=== PATIENT | female | born 1985 | race Caucasian/White ===

== ENCOUNTER 2022-02-24 14:44 | Emergency (ER) | payer OTHER, SELFPAY ==
[2022-02-24 15:23] VITALS: BP 153/94; PULSE 94; RESP 19; TEMP 38; O2SAT 97; BMI 46.3
[2022-02-24 15:24] LABS: Strep Scrn Group A (Rapid) Negative (Negative)
--- NOTE | 2022-02-24 15:36 | HMH.EDUTC ---
[facility] [place] Clinical Impression: Viral syndrome UTI (urinary tract infection) Qualifiers: Urinary tract infection type: acute cystitis Hematuria presence: without hematuria Qualified Code(s): N30.00 - Acute cystitis without hematuria Disposition: Home, Self-Care Condition on Discharge: Good Instructions: Urinary Tract Infection, DI for Vaginal Yeast Infection, DI for Urinary Tract Infection (UTI) Additional Instructions: Drink plenty of fluids. Take tylenol or ibuprofen for pain or fever. Take the medications as directed. Follow up with your regular doctor. GO TO THE ER FOR ANY WORSENING SYMPTOMS We will culture the urine. That will tell what bacteria is causing your infection and which antibiotics will treat it best. Sometimes the first antibiotic we prescribe turns out to not work against different bacteria. So, make sure you follow up within 3 days if you are not getting better. Prescriptions: Ondansetron [Zofran 4mg ODT] 4 mg PO Q8HP PRN #20 tab PRN Reason: Nausea Transmission Status: Received by [id number] Ciprofloxacin HCl [Cipro 500mg Tab] 500 mg PO BID 7 Days #14 tab Transmission Status: Received by [id number] Fluconazole [Diflucan 150mg tab] 150 mg PO ONCE #1 tab Transmission Status: Received by [id number] Referrals: Provider,Referral, MD [Primary Care Provider] - Time of Disposition: 16:06 Medical Decision Making - Medical Records Medical records reviewed: No: I reviewed the patient's medical records. - Sudhakar Inquiry Pt receiving controlled substance: No Vital Signs: 02/24/22 15:23 02/24/22 16:13 Temperature 100.4 F H 99.9 F H Temperature Source Oral Oral Pulse Rate 85 Pulse Rate [Left Radial] 94 H Respiratory Rate 19 19 Blood Pressure 135/85 Blood Pressure [Right Arm] 153/94 H Blood Pressure Mean [Right Arm] 113 02 Sat by Pulse Oximetry 97 - Lab Data Lab results reviewed: Yes: I reviewed the patient's lab results. Lab Results 02/24/22 15:06: Influenza Type A Ag Negative, Influenza Type B Ag Negative 02/24/22 15:07: Group A Strep Rapid Negative 02/24/22 15:45: Urine Color Dark yellow, Urine Appearance Slightly cloudy, Urine pH 5.5, Ur Specific Blanco >= 1.030, Urine Protein Trace, Urine Glucose (UA) Negative, Urine Ketones Negative, Urine Blood Negative, Urine Nitrate Negative, Urine Bilirubin 1+ A, Urine Urobilinogen 0.2, Ur Leukocyte Esterase Negative Orders (Tests/Meds): ORDERS Category Date Time Status Strep Screen Confirmation Stat Micro 02/24/22 15:07 Received Urine Culture Stat Micro 02/24/22 15:25 Received [facility] [place] HPI - General Stated complaint: fever, nausea, bodyaches Time Seen by Provider: 02/24/22 15:36 Mode of Arrival: Ambulatory Source of Information: Patient Limitations: No Limitations Description of Symptoms (Recalled from Triage Doc. by RN): pt here for headache for 5 days. a fever, body aches, pt had chillls two nights ago. woke up with joint pain, nausea and possibly UTI. HEENT Symptoms (Recalled from RN notes): No Resp Symptoms (Recalled from RN notes): Yes Skin Symptoms (Recalled from RN notes): No MS Symptoms (Recalled from RN notes): No Functional Status (Recalled from RN notes): wnl - History of Present Illness Provider Complaint: She states that she has felt bad for the past 4 to 5 days. She has had body aches and malaise. Yesterday her body aches worsened and she began having low back pain and dysuria. - Related Data Previous Rx's Medication Instructions Recorded Ciprofloxacin HCl [Cipro 500mg 500 mg PO BID 7 Days #14 tab 02/24/22 Tab] Fluconazole [Diflucan 150mg tab] 150 mg PO ONCE #1 tab 02/24/22 Ondansetron [Zofran 4mg ODT] 4 mg PO Q8HP PRN #20 tab 02/24/22 Allergies Allergy/AdvReac Type Severity Reaction Status Date / Time No Known Allergies Allergy Verified 02/24/22 16:07 - Worker's Comp Is this a Worker's Comp case?: No
[2022-02-24 16:13] VITALS: BP 135/85; PULSE 85; RESP 19; TEMP 37.7
[2022-02-24 16:22] LABS: Apearance,Urine Slightly Cloudy (Clear); Bilirubin,Urine 1+ (Negative); Blood, Urine Negative (Negative); Color,Urine Dark Yellow (Yellow); Glucose,Urine (UA) Negative (Negative); Ketones,Urine Negative (Negative); PH,Urine 5.5 (5.0-8.5); Protein,Urine Trace (Negative); Specific Gravity, Urine >= 1.030 (1.005-1.030); UTC Leukocyte Esterase,Urine Negative (Negative); UTC Nitrate,Urine Negative (Negative); Urobilinogen,Urine 0.2 EU/dl (0.2)
[2022-02-24 19:09] LABS: UTC Influenza A Antigen Negative (Negative); UTC Influenza B Antigen Negative (Negative)
== END 2022-02-24 16:14 | disposition home or self-care (01) ==
PROVIDERS: Emergency Provider Nurse Practitioner Family
DX: N30.00 Acute cystitis without hematuria (principal); B34.9 Viral infection, unspecified
CPT/HCPCS: 81003; 87086; 87430; 87804; 99212; G0463

== ENCOUNTER 2023-06-08 08:00 | Emergency (ER) | payer BC, SELFPAY ==
[2023-06-08 08:10] VITALS: BP 106/70; PULSE 85; RESP 20; TEMP 36.6; O2SAT 97; BMI 47.4
--- NOTE | 2023-06-08 08:16 | EXP.UTC ---
Discharge Plan Disposition Patient Disposition: Home, Self-Care Condition: Good Prescriptions Prescriptions: New ondansetron HCl 8 mg tablet 8 mg PO DAILY PRN (Reason: nausea and vomiting) Qty: 30 0RF No Action irbesartan-hydrochlorothiazide 300-12.5 mg tablet 1 tab PO DAILY Patient Comments: TAKE 1 TABLET BY MOUTH EVERY DAY FOR 90 DAYS furosemide 20 mg tablet 20 mg PO DAILY Patient Comments: TAKE 1 TABLET BY MOUTH EVERY DAY Referrals Follow up/Referrals: Jose Rodriguez MD [Primary Care Provider] - See instructions Activity Restrictions/Add. Instructions Additional Instructions/Restrictions: COVID19 pending - we will call with those results Zofran as needed for upset stomach Rest, fluids, Tylenol/Motrin as needed Return to [facility] or ER is symptoms worsen or fail to improve Clinical Impressions Clinical Impression: Viral syndrome Stand Alone Forms Stand Alone Forms: Work/School Release Instructions Patient Instructions: DI for COVID-19 (Suspected or Confirmed ) Discharge ED Provider: Sol Gee [facility] [place] HPI General Stated complaint: fever/chills, body aches, h/a Time Seen by Provider: 06/08/23 08:16 History of Present Illness Provider Complaint: Nausea, vomiting, diarrhea started yesterday. Slept all day yesterday. Woke up early this am with fever, body aches, chills. Denies ear pain, denies congestion, denies sore throat, denies rash. Onset (ago): day(s) Relieving factors: none Exacerbating factors: none Associated symptoms: fever/chills, headaches and nausea/vomiting Treatments prior to arrival: NSAID Related Data Home Medications Medication Instructions Recorded Confirmed furosemide 20 mg tablet 20 mg PO DAILY Fluid 06/08/23 06/08/23 irbesartan 300 1 tab PO DAILY Hypertension 06/08/23 06/08/23 mg-hydrochlorothiazide 12.5 mg tablet Previous Rx's Medication Instructions Recorded ondansetron HCl 8 mg tablet 8 mg PO DAILY PRN nausea and 06/08/23 vomiting #30 tabs Allergies Allergy/AdvReac Type Severity Reaction Status Date / Time No Known Allergies Allergy Verified 02/24/22 16:07 [facility] Disclaimer: The information contained in this section may have been updated after the patient was seen, as this information can be updated by other users. Social History Smoking Status: Never smoker alcohol intake: never current occupational status: employed Travel in the last 8 weeks: None ROS Obtained: Yes All systems reviewed & no additional complaints except as documented Constitutional Constitutional: Reports body ache, Reports chills, Reports fever(s) and Reports headache(s) ENT Ears, Nose, Mouth, and Throat: Reports headache(s) Gastrointestinal Gastrointestingal: Reports loose stools and nausea Neurologic Neurologic: Reports headache(s) Physical Exam General General appearance: alert and in no apparent distress Head Head exam: atraumatic, normocephalic and normal inspection Eye Eye exam: Present normal appearance, PERRL and EOMI ENT ENT exam: Present normal exam, normal oropharynx, mucous membranes moist, TM's normal bilaterally and normal external ear exam Neck Neck exam: Present normal inspection, full ROM and trachea midline; Absent meningismus or lymphadenopathy Chest Chest inspection: Present normal inspection and symmetric chest wall rise; Absent tenderness Respiratory Respiratory exam: Present normal lung sounds bilaterally; Absent respiratory distress Cardiovascular Cardiovascular exam: Present regular rate and normal rhythm; Absent JVD Abdominal Exam Abdominal exam: Present soft and normal bowel sounds; Absent distention, tenderness or guarding Extremities Exam Extremities exam: Present normal inspection, full ROM and normal capillary refill; Absent calf tenderness Back Exam Back exam: Present normal inspection; Absent tenderness Neurological Exam Neurological exam: Present alert and oriented X3 Psychiat
[2023-06-08 08:23] VITALS: BP 106/70; PULSE 85; RESP 20; TEMP 36.6; O2SAT 97
== END 2023-06-08 08:29 | disposition home or self-care (01) ==
PROVIDERS: Emergency Provider Physician Assistant; PCP Family Medicine
DX: R11.2 Nausea with vomiting, unspecified (principal); R19.7 Diarrhea, unspecified; R50.9 Fever, unspecified; R51.9 Headache, unspecified; B34.9 Viral infection, unspecified
CPT/HCPCS: 99212; 99214; G0463

== ENCOUNTER 2023-12-19 12:35 | Emergency (ER) | payer BC, SELFPAY ==
[2023-12-19 12:36] VITALS: BP 162/87; PULSE 75; RESP 16; TEMP 36.7; O2SAT 94; BMI 48.3
--- NOTE | 2023-12-19 13:08 | HMH.EDGENADL ---
Discharge Plan Disposition Patient Disposition: Home, Self-Care Condition: Good Prescriptions Prescriptions: No Action irbesartan-hydrochlorothiazide 300-12.5 mg tablet 1 tab PO DAILY Patient Comments: TAKE 1 TABLET BY MOUTH EVERY DAY FOR 90 DAYS furosemide 20 mg tablet 20 mg PO DAILY Patient Comments: TAKE 1 TABLET BY MOUTH EVERY DAY ondansetron HCl 8 mg tablet 8 mg PO DAILY PRN (Reason: nausea and vomiting) Qty: 30 0RF Referrals Follow up/Referrals: Jose Rodriguez MD [Primary Care Provider] - See instructions Chester Gomez MD [Staff Physician] - See instructions Activity Restrictions/Add. Instructions Additional Instructions/Restrictions: Please return to the emergency department if you experience any new or worsening symptoms. Clinical Impressions Clinical Impression: Biliary sludge determined by ultrasound, Abdominal pain, epigastric Instructions Patient Instructions: DI for Acute Abdominal Pain Discharge ED Provider: Pablo Puckett Adult HPI General Chief complaint: Abdominal Pain Stated complaint: pain in lower L abd and back Time Seen by Provider: 12/19/23 13:08 Mode of Arrival: Ambulatory Source of Information: Patient Limitations: No Limitations Description of Symptoms (Recalled from ER Triage Doc. by RN): patient presents to ER with complaints of pain in left upper quadrant that radiates into back. States pain started on Friday was seen by PCP where they chrystal labs but has not heard anything and does not feel like he is getting any better. Denies vomiting and diarrhea. History of Present Illness HPI narrative: Patient presents for evaluation of left upper quadrant and epigastric abdominal pain that is worsened with fatty meals, has had similar symptoms in the past, pain is described as dull and nonradiating. It is moderate in severity. It is resolving at this time. Associated symptoms include nausea and vomiting. No fevers or chills or dysuria or frequency. No sick contacts. No recent travel. Denies abdominal surgical history. Patient has been able to move bowels without difficulty. Symptoms were gradual in onset starting in the past 72 hours. Please note that above description of symptoms, in this electronic medical record under categorization of recalled from ER triage doctor by RN are reflective of an initial nursing assessment, however, is not reflective of my full history and physical exam that was personally taken and clarified. Consequentially, this preceding description of symptoms, which may include the patient's categorized chief complaint in the EMR, do not reflect my personal clinical impression, and the ultimate description of history of present illness and patient stated complaints should be deferred to this section of the note. Unless stated otherwise or congruent with this section of the note, additional signs, symptoms, or incongruence should be interpreted as inaccurate with my clinical impression. Related Data Home Medications Medication Instructions Recorded Confirmed furosemide 20 mg tablet 20 mg PO DAILY Fluid 06/08/23 06/08/23 irbesartan 300 1 tab PO DAILY Hypertension 06/08/23 06/08/23 mg-hydrochlorothiazide 12.5 mg tablet Previous Rx's Medication Instructions Recorded ondansetron HCl 8 mg tablet 8 mg PO DAILY PRN nausea and 06/08/23 vomiting #30 tabs Allergies Allergy/AdvReac Type Severity Reaction Status Date / Time No Known Allergies Allergy Verified 02/24/22 16:07 [facility] Disclaimer: The information contained in this section may have been updated after the patient was seen, as this information can be updated by other users. Social History (Updated 06/08/23 @ 08:24 by CARLITOS Victor) Smoking Status: Never smoker alcohol intake: never current occupational status: employed Travel in the last 8 weeks: None ROS Obtained: Yes Systems reviewed as appropriate & no additional complaints except as documented As per HPI Physical Exam General General appearance: alert and in no apparent distress Head Head exam: atraumatic and normocephalic Eye Eye exam: Present normal appearance Neck Neck exam: Present normal inspection Chest Chest inspection: Present normal inspection and symmetric chest wall rise Respiratory Respiratory exam: Present normal lung sounds bilaterally; Absent respiratory distress Cardiovascular Cardiovascular exam: Present regular rate and normal rhythm Abdominal Exam Abdominal exam: Present soft and tenderness Abdominal tenderness: Present LUQ and epigastrium Neurological Exam Neurological exam: Present alert and oriented X3 Psychiatric Psychiatric exam: Present normal affect and normal mood Skin Skin exam: Present warm and dry Medical Decision Making Medical Records Medical records reviewed: Yes I reviewed the patient's medical records. Sudhakar Inquiry Pt receiving controlled substance: No Vital Signs: 12/19/23 12:36 12/19/23 14:47 Temperature 98.0 F 98.0 F Temperature Source Oral Pulse Rate 72 Pulse Rate [Right] 75 Respiratory Rate 16 15 Blood Pressure 133/79 Blood Pressure [Right Arm] 162/87 H Blood Pressure Mean [Right Arm] 112 Blood Pressure Source [Right Arm] Automatic Cuff 02 Sat by Pulse Oximetry 94 L Oxygen Delivery Method Room Air Lab Data Lab Results 12/19/23 12:59: WBC 10.6, RBC 4.95, Hgb 14.1, Hct 43.8, MCV 88.4, MCH 28.5, MCHC 32.3, RDW 13.2, Plt Count 323, MPV 7.8, Neut % (Auto) 76.9, Lymph % (Auto) 16.0, Lipscomb % (Auto) 6.1, Eos % (Auto) 0.5, Baso % (Auto) 0.5, Neut # (Auto) 8.1 H, Lymph # (Auto) 1.7, Lipscomb # (Auto) 0.7, Eos # (Auto) 0.1, Baso # (Auto) 0.1, Sodium 136, Potassium 3.9, Chloride 99, Carbon Dioxide 32 H, Anion Gap 8.9, BUN 13, Creatinine 0.70, Estimated Creat Clear 112, Estimated GFR 95, Est GFR ( Amer) 115, Glucose 92, Calcium 9.1, Total Bilirubin 1.0, AST 29, ALT 23, Alkaline Phosphatase 79, Total Protein 7.1, Albumin 4.3, Globulin 2.8, Albumin/Globulin Ratio 1.5, Lipase 27, Serum HCG, Qual Negative 12/19/23 12:59 12/19/23 12:59 Orders (Tests/Meds): ED MEDICATIONS Discontinued Medications Generic Name Dose Route Start Last Admin Trade Name Freq PRN Reason Stop Dose Admin Belladonna Alkaloids 60 ml 12/19/23 13:44 12/19/23 13:54 Belladonna Alkaloids 60 Ml Ml PO 12/19/23 13:45 60 ml ONCE ONE Administration Prochlorperazine Edisylate 10 mg 12/19/23 13:44 12/19/23 13:55 Prochlorperazine 10mg/2ml Vial IM 12/19/23 13:45 Not Given ONCE ONE Prochlorperazine Edisylate 10 mg 12/19/23 13:56 12/19/23 14:02 Prochlorperazine 10mg/2ml Vial IV 12/19/23 13:57 10 mg ONCE ONE Administration ORDERS Category Date Time Status US Right Upper Quad [US abdomen limited] Stat Exams 12/19/23 13:45 Completed CBC w/Auto Diff [Complete Blood Count Auto Diff] Stat Lab 12/19/23 12:59 Completed CMP [Comprehensive Metabolic Panel] Stat Lab 12/19/23 12:59 Completed HCG Qualitative, Serum Stat Lab 12/19/23 12:59 Completed Lipase Stat Lab 12/19/23 12:59 Completed Medical Decision Narrative: Patient with history and exam per above presenting for evaluation of epigastric and left upper quadrant abdominal pain associated with meals Diagnoses considered include Pancreatitis, gastritis, PUD, gastroparesis, early presentation of cholelithiasis or cholecystitis, no clinical evidence at this time to suggest bowel obstruction or acute abdominal surgical pathology ED workup and treatment included: ED MEDICATIONS Discontinued Medications Generic Name Dose Route Start Last Admin Trade Name Freq PRN Reason Stop Dose Admin Belladonna Alkaloids 60 ml 12/19/23 13:44 12/19/23 13:54 Belladonna Alkaloids 60 Ml Ml PO 12/19/23 13:45 60 ml ONCE ONE Administration Prochlorperazine Edisylate 10 mg 12/19/23 13:44 12/19/23 13:55 Prochlorperazine 10mg/2ml Vial IM 12/19/23 13:45 Not Given ONCE ONE Prochlorperazine Edisylate 10 mg 12/19/23 13:56 12/19/23 14:02 Prochlorperazine 10mg/2ml Vial IV 12/19/23 13:57 10 mg ONCE ONE Administration ORDERS Category Date Time Status US Right Upper Quad [US abdomen limited] Stat Exams 12/19/23 13:45 Completed CBC w/Auto Diff [Complete Blood Count Auto Diff] Stat Lab 12/19/23 12:59 Completed CMP [Comprehensive Metabolic Panel] Stat Lab 12/19/23 12:59 Completed HCG Qualitative, Serum Stat Lab 12/19/23 12:59 Completed Lipase Stat Lab 12/19/23 12:59 Completed Labs were independently interpreted by me, significant for no leukocytosis, liver enzymes within normal limits, no other acute findings Imaging was independently visualized and interpreted by me, significant for biliary sludge without other evidence on ultrasonography of acute cholecystitis. Please refer to radiology report for full details. My clinical impression at this time is most consistent with gastritis versus symptomatic cholelithiasis for which patient has general surgery referral placed. I discussed my clinical impression with patient and answered all questions. At this time, the evidence for any other entities in the differential is insufficient to warrant any further testing or ED observation. This was explained to the patient. The patient was advised that persistent or worsening symptoms require further evaluation. I confirmed the patient's understanding of this discussion. Critical Care Critical Care Time Critical Care Time: No
--- NOTE | 2023-12-19 13:13 | PC.NURSE ---
PT RESTING IN CHAIR, NO NEEDS AT THIS TIME,CALL LIGHT IN REACH
--- NOTE | 2023-12-19 13:45 | US_ITS ---
FINAL REPORT CLINICAL HISTORY: RUQ pain, evaluage gallbladder COMPARISON: None FINDINGS: Sonographic images of the right upper quadrant were obtained. The pancreas is partially obscured.The liver has an unremarkable appearance.The gallbladder appears normal without evidence of gallstones.There is no evidence of biliary ductal dilatation.The common duct measures 5 mm. Limited images of the right kidney are unremarkable. IMPRESSION: Unremarkable right upper quadrant ultrasound. Reviewed, Interpreted and Dictated by George Murray III, MD Transcribed by Verna Cuello Authenticated and [facility]
[2023-12-19] MEDS: BELLADONNA ALKALOIDS 60 ML ML PO (13:54)
[2023-12-19] MEDS: PROCHLORPERAZINE 10MG/2ML VIAL 10 MG IV (14:02)
[2023-12-19 14:14] LABS: Chloride 99 mmol/L (98-107); Sodium 136 mmol/L (136-145)
[2023-12-19 14:15] LABS: Potassium 3.9 mmoL/L (3.5-5.1)
[2023-12-19 14:16] LABS: Basophils # 0.1 K/mm3 (0-0.2); Basophils % 0.5 % (0.1-2.0); Eosinophils # 0.1 K/mm3 (0.0-0.4); Eosinophils % 0.5 % (0.1-12.0); Hematocrit 43.8 % (37.0-47.0); Hemoglobin 14.1 g/dL (12.2-16.2); Lymphocytes # 1.7 K/mm3 (0.7-4.5); Mean Corpuscular HGB Conc 32.3 g/dL (31.8-35.4); Mean Corpuscular Hemoglobin 28.5 pg (27.0-31.2); Mean Corpuscular Volume 88.4 fl (81-99); Mean Platelet Volume 7.8 fl (7.4-10.4); Monocytes # 0.7 K/mm3 (0.1-1.0); Monocytes % 6.1 % (1.7-9.3); Neutrophils # 8.1 K/mm3 (1.8-7.8); Neutrophils % 76.9 % (37.0-80.0); Platelet Count 323 K/mm3 (142-424); Red Blood Count 4.95 M/mm3 (4.20-5.40); Red Cell Distribution Width 13.2 % (11.5-17.5); White Blood Count 10.6 K/mm3 (4.8-10.8)
[2023-12-19 14:17] LABS: Alanine Aminotransferase 23 U/L (12-78); Alkaline Phosphatase 79 U/L (38-126); Anion Gap 8.9 mEq/L (5-15); Aspartate Amino Transferase 29 U/L (14-36); Blood Urea Nitrogen 13 mg/dl (7-17); Carbon Dioxide 32 mmol/L (22.0-30.0); Creatinine Clearance Estimated 112 mL/min (50-200); Estimated Glomerular Filt Rate 95 ml/min (>60); GFR (African American) 115 ML/MIN (>60); Lipase 27 U/L (23-300)
[2023-12-19 14:18] LABS: Albumin Level 4.3 g/dl (3.5-5.0); Albumin/Globulin Ratio 1.5 (1.1-1.8); Calcium 9.1 mg/dl (8.4-10.2); Globulin 2.8 g/dL (1.3-3.2); Glucose 92 mg/dl (74-100); Total Protein,Serum 7.1 g/dl (6.3-8.2)
[2023-12-19 14:19] LABS: HCG Qualitative, Serum Negative (Negative)
--- NOTE | 2023-12-19 14:20 | PC.NURSE ---
PT BACK FROM ULTRASOUND
[2023-12-19 14:47] VITALS: BP 133/79; PULSE 72; RESP 15; TEMP 36.7
== END 2023-12-19 14:48 | disposition home or self-care (01) ==
PROVIDERS: Emergency Provider Emergency Medicine; PCP Family Medicine
DX: R10.13 Epigastric pain (principal); K83.9 Disease of biliary tract, unspecified; R10.12 Left upper quadrant pain
CPT/HCPCS: 76705; 80053; 83690; 84703; 85025; 96374; 99285

== ENCOUNTER 2024-01-09 10:17 | Outpatient (CLI) | payer BC, SELFPAY ==
--- NOTE | 2024-01-09 10:21 | NM_ITS ---
FINAL REPORT CLINICAL HISTORY: EPIGASTRIC PAIN,NAUSEA,SLUDGE 10:30 am 8.43 mci tc choletec 12:00 pm 2.8 mcg of cck pain during cck FINDINGS: Sequential anterior projection images of the abdomen were obtained after the intravenous injection of 8.43 mCi technetium 99m Choletec. There is normal uptake of radiotracer by the liver. The bile ducts are visualized by 10 minutes. Gallbladder activity is seen by 10 minutes. Bowel activity is noted by 20 minutes. After 1 hour, 2.8 ?g of CCK was injected intravenously for calculation of gallbladder ejection fraction. The gallbladder ejection fraction is 90%, which is within normal limits. IMPRESSION: No evidence of cystic duct or bile duct obstruction. Normal gallbladder ejection fraction of 90%. Reviewed, Interpreted and Dictated by George Murray III, MD Transcribed by Stephanie Tan Authenticated and [facility]
[2024-01-09] MEDS: SINCALIDE 2.8 MCG in 0.9 % SODIUM CHLORIDE 50 ML 100 MCG IV (12:59)
[2024-01-09] MEDS: ISOTOPE CHOLETECH;1 DOSE (UP TO 15 MCI) IV (12:59)
[2024-01-09] MEDS: SODIUM CHLORIDE 0.9% 10ML SYR (RAD ONLY) 10 ML IV (12:59)
== END 2024-01-09 23:59 ==
LOC: RAD 10:18
PROVIDERS: PCP Family Medicine; Visit Provider Family Medicine
DX: R10.13 Epigastric pain (principal); R11.0 Nausea; K82.8 Other specified diseases of gallbladder
CPT/HCPCS: 78227; A9537; J2805

== ENCOUNTER 2024-01-16 15:42 | Outpatient (CLI) | payer BC, SELFPAY ==
[2024-01-19 11:10] LABS: H. pylori Breath Test Negative (Negative)
== END 2024-01-16 23:59 ==
LOC: LAB 15:43
PROVIDERS: PCP Family Medicine; Visit Provider Family Medicine
DX: R10.13 Epigastric pain (principal); R11.0 Nausea; R14.0 Abdominal distension (gaseous)
CPT/HCPCS: 36415; 83013

== ENCOUNTER 2024-02-12 09:02 | Outpatient (CLI) | payer BC, SELFPAY ==
--- NOTE | 2024-02-12 09:13 | CT_ITS ---
FINAL REPORT CLINICAL HISTORY: ABDOMINAL PAIN COMPARISON: None FINDINGS: CT OF THE ABDOMEN AND PELVIS WITH CONTRAST Axial CT images of the abdomen and pelvis were obtained after the administration of oral and iv contrast. Coronal reformatted images were also obtained and reviewed.This study was performed with techniques to keep radiation doses as low as reasonably achievable (ALARA). Individualized dose reduction techniques using automated exposure control or adjustment of mA and/or kV according to the patient's size were employed. Abdomen: There is mild atelectasis or scarring in the lung bases. The heart is normal in size. The liver has an unremarkable appearance, without evidence of mass or biliary ductal dilatation. The spleen is unremarkable. No adrenal mass is present. The pancreas has an unremarkable appearance. The kidneys are normal, without evidence of mass or hydronephrosis. The aorta is normal in caliber. There is no free fluid or adenopathy. No mass or abnormal fluid collection is seen. Pelvis: The appendix normal. The urinary bladder is unremarkable. An IUD is noted in the uterus. No inflammatory process is seen. There is no evidence of mass or adenopathy. There is no evidence of bowel obstruction. IMPRESSION: No evidence of acute intra-abdominal process. Reviewed, Interpreted and Dictated by George Murray III, MD Transcribed by Verna Cuello Authenticated and [facility]
[2024-02-12 09:41] LABS: Blood Urea Nitrogen 16 mg/dl (7-17); Estimated Glomerular Filt Rate 113 ml/min (>60); GFR (African American) 137 ML/MIN (>60)
[2024-02-12] MEDS: BARIUM SULFATE(READI-CAT2);450ML BOTTLE 450 ML PO (10:10)
[2024-02-12] MEDS: IOPAMIDOL-370 (76%);100ML BOTTLE 75 ML IV (10:10)
[2024-02-12] MEDS: SODIUM CHLORIDE 0.9% 10ML SYR (RAD ONLY) 10 ML IV (10:10)
== END 2024-02-12 23:59 | disposition home or self-care (01) ==
LOC: RAD 09:02
PROVIDERS: PCP Family Medicine; Visit Provider Family Medicine
DX: R10.12 Left upper quadrant pain (principal); R10.32 Left lower quadrant pain
CPT/HCPCS: 36415; 74177; 82565; 84520; Q9967

== ENCOUNTER 2024-08-03 09:38 | Emergency (ER) | payer BC, SELFPAY ==
--- NOTE | 2024-08-03 10:04 | XR_ITS ---
PROCEDURE INFORMATION: Exam: XR Right Hand Exam date and time: 08/03/2024 10:09 AM Age: 39 years old Clinical indication: Right; Patient HX: Marianne, woke up with hand pain TECHNIQUE: Imaging protocol: Radiologic exam of the right hand. Views: 3 or more views. COMPARISON: No relevant prior studies available. FINDINGS: Bones/joints: Bones are intact and the joint spaces are preserved. No fracture or acute bony abnormality. No significant arthritic changes. Soft tissues: Unremarkable. No soft tissue gas or radiopaque foreign body. IMPRESSION: No acute findings.
[2024-08-03 10:35] VITALS: BP 123/80; PULSE 80; RESP 20; TEMP 36.9; O2SAT 97; BMI 52.1
--- NOTE | 2024-08-03 10:42 | ED_ITS ---
Discharge Plan Disposition Patient Disposition: Home, Self-Care Condition: Good Prescriptions Prescriptions: New methylprednisolone 4 mg Tablets,Dose Pack 4 mg PO DIRECTED 6 Days Qty: 21 0RF Rx Instructions: Take 1 pack as directed for 6 days No Action irbesartan-hydrochlorothiazide 300-12.5 mg tablet 1 tab PO DAILY Patient Comments: TAKE 1 TABLET BY MOUTH EVERY DAY FOR 90 DAYS furosemide 20 mg tablet 20 mg PO DAILY Patient Comments: TAKE 1 TABLET BY MOUTH EVERY DAY Referrals Follow up/Referrals: Jose Rodriguez MD [Primary Care Provider] - See instructions John Paul Anderson DO [Staff Physician] - See instructions Activity Restrictions/Add. Instructions Additional Instructions/Restrictions: Rest the extremity, Elevate the extremity as tolerated while you are resting. Rest your hand for the next few days. Take the medication as directed. Follow up with Dr. Anderson (orthopedics). I put in a referral but you need to call his office and schedule an appointment. Follow up with your regular doctor. GO TO THE ER FOR ANY WORSENING SYMPTOMS Clinical Impressions Clinical Impression: Right hand tendonitis Instructions Patient Instructions: DI for Tendinitis, Methylprednisolone Print Language Print Language: Cymro Discharge ED Provider: Vu Gannon [facility] General Stated complaint: middle finger swollen and cant bend Time Seen by Provider: 08/03/24 10:42 History of Present Illness Provider Complaint: She states that for the past 2 days she has had right middle finger pain and stiffness. She denies any injury. Related Data Home Medications ?Medication ?Instructions ?Recorded ?Confirmed furosemide 20 mg tablet 20 mg PO DAILY Fluid 06/08/23 08/03/24 irbesartan 300 1 tab PO DAILY Hypertension 06/08/23 08/03/24 mg-hydrochlorothiazide 12.5 mg tablet Previous Rx's ?Medication ?Instructions ?Recorded methylprednisolone 4 mg tablets in 4 mg PO DIRECTED 6 days #21 tabs 08/03/24 a dose pack Allergies Allergy/AdvReac Type Severity Reaction Status Date / Time No Known Allergies Allergy Verified 02/24/22 16:07 [facility] Disclaimer: The information contained in this section may have been updated after the patient was seen, as this information can be updated by other users. Medical History (Updated 08/03/24 @ 11:26 by Vu Gannon APRN) Intracranial hypertension Hypertension Social History (Updated 06/08/23 @ 08:24 by CARLITOS Victor) Smoking Status: Never smoker alcohol intake: never current occupational status: employed Travel in the last 8 weeks: None ROS Obtained: Yes All systems reviewed & no additional complaints except as documented Constitutional Constitutional: Denies chills and Denies fever(s) Eyes Eyes: Denies eye discharge ENT Ears, Nose, Mouth, and Throat: Denies dizziness, Denies otalgia and Denies sore throat Cardiovascular Cardiovascular: Denies chest pain Respiratory Respiratory: Denies shortness of breath, Denies chest congestion, Denies cough, Denies stridor and Denies wheezing Gastrointestinal Gastrointestingal: Denies nausea or vomiting Musculoskeletal Musculoskeletal: Reports as per HPI Integumentary/Breasts Skin/Breast: Denies rash Neurologic Neurologic: Denies dizziness and Denies paresthesias Allergic/Immunologic Allergic/Immunologic: Denies wheezing Physical Exam General General appearance: alert and in no apparent distress Head Head exam: atraumatic, normocephalic and normal inspection Eye Eye exam: Present normal appearance, PERRL and EOMI ENT ENT exam: Present normal exam, normal oropharynx, mucous membranes moist, TM's normal bilaterally and normal external ear exam Neck Neck exam: Present normal inspection, full ROM and trachea midline; Absent meningismus or lymphadenopathy Chest Chest inspection: Present normal inspection and symmetric chest wall rise; Absent tenderness Respiratory Respiratory exam: Present normal lung sounds bilaterally; Absent respiratory distress Cardiovascular Cardiovascular exam: Present regular rate and normal rhythm; Absent JVD Abdominal Exam Abdominal exam: Present soft and normal bowel sounds; Absent distention, tenderness or guarding Extremities Exam Extremities exam: Present normal capillary refill; Absent calf tenderness Expanded Upper Extremity Exam Right: Elbow exam: Present normal inspection and full ROM; Absent tenderness, pain w/ pronation/supination or tenderness over radial head Forearm/Wrist exam: Present normal inspection and full ROM; Absent tenderness, tenderness over anatomical snuff box or pain with axial thumb loading Hand exam: Present tenderness; Absent swelling, abrasion, laceration, skin avulsion, ecchymosis, deformity, crepitus, dislocation, erythema, amputation, nail avulsion or subungual hematoma Neuromotor exam: Normal wrist extension, thumb opposition, thumb IP flexion, thumb adduction and fingers 2-5 abduction Neurosensory exam: Normal radial nerve, ulnar nerve and median nerve Vascular exam: Normal capillary refill, radial pulse and ulnar pulse Back Exam Back exam: Present normal inspection; Absent tenderness Neurological Exam Neurological exam: Present alert and oriented X3 Psychiatric Psychiatric exam: Present normal affect and normal mood Skin Skin exam: Present warm, dry, intact and normal color Lymphatic Lymphatic Findings: no adenopathy Medical Decision Making Medical Records Medical records reviewed: No I reviewed the patient's medical records. Screening: Per USPSTF and CDC recommendations, given the prevalence of disease in our [facility], it is our hospital?s policy to screen for HIV and viral Hepatitis for all patients aged 18 and over and those with ongoing risk factors. Sudhakar Inquiry Pt receiving controlled substance: No Orders (Tests/Meds): ORDERS Category Date Time Status Hand XR right minimum 3 views [XR hand RT min 3V] Stat Exams 08/03/24 10:04 Taken Radiology Data #1: Image(s): Hand Image Reviewed: Yes I reviewed the patient's radiology image and Yes I have reviewed radiologist's interpretation Preliminary Findings: Normal/NAD Accession No. : [id number] Patient Name / ID : BREANA Phillips / [id number] Exam Date : 08/03/2024 10:09:44 ( Final ) Study Comment : Sex / Age : F / 39Y Creator : MARYBETH HASKINS Dictator : Milker Machine : Assistant Professor Of German : MARYBETH HASKINS Approver2 : Report Date : 08/03/2024 10:50:05 My Comment : PROCEDURE INFORMATION: Exam: XR Right Hand Exam date and time: 08/03/2024 10:09 AM Age: 39 years old Clinical indication: Right; Patient HX: Nki, woke up with hand pain TECHNIQUE: Imaging protocol: Radiologic exam of the right hand. Views: 3 or more views. COMPARISON: No relevant prior studies available. FINDINGS: Bones/joints: Bones are intact and the joint spaces are preserved. No fracture or acute bony abnormality. No significant arthritic changes. Soft tissues: Unremarkable. No soft tissue gas or radiopaque foreign body. IMPRESSION: No acute findings.
[2024-08-03 11:27] VITALS: BP 123/80; PULSE 80; RESP 20; TEMP 36.9; O2SAT 97
== END 2024-08-03 11:29 | disposition home or self-care (01) ==
PROVIDERS: Emergency Provider Nurse Practitioner Family; PCP Family Medicine
DX: M65.241 Calcific tendinitis, right hand (principal)
CPT/HCPCS: 73130; 99213; G0381

== ENCOUNTER 2025-08-20 17:11 | Emergency (ER) | payer BC, SELFPAY ==
--- OUTSIDE RECORDS SUMMARY | 2025-07-12 07:00 | XMS_ITS | Encounter Summary ---
Author Organization Healthcare Address [address] [place] [address] Care Team Providers Care Laborer [employer] Name Role Phone Jose Rodriguez MD Primary Care Provider + [phone] Reason for Visit * Reason Comments office visit Pt came in for strin g check no other concerns she did said she has general pain she rates an 4-5. Encounter Details Date Type Department Care Team ([facility] Contact Info) Description 07/12/2025 8:00 AM EDT Office Visit Obstetrics & Gynecology [address] [place] [address] Anna Elkins, PRESCHOOL TEACHER AIDE, CNM [address] [facility] [address] [place] [address] IUD check up (Primary Dx); Intrauterine contraceptive device threads lost, initial encounter; control counseling Social History Tobacco Use Types Packs/Day Years Used Date Smoking Tobacco: Never Smokeless Tobacco: Never Alcohol Use Standard Drinks/Week Comments Yes 0 (1 standard drink = 0.6 oz pur e alcohol) PHQ-2 Answer Date Recorded Patient Health Questionnaire-2 Score 0 07/12/2025 Comments No Sex and Gender Information Value Date Recorded Sex Assigned at Not on file Legal Sex Female 10:49 AM EDT Gender Identity Not on file Sexual Orientation Not on file documented as of this encounter Last Filed Vital Signs Vital Sign Reading Time Taken Comments Blood Pressure 121/85 07/12/2025 8:03 AM EDT Pulse 84 07/12/2025 8:03 AM EDT Temperature 36.9 C (98.5 F) 07/12/2025 8:03 AM EDT Respiratory Rate - - Oxygen Saturation 96% 07/12/2025 8:03 AM EDT Inhaled Oxygen Concentration - - Weight 149 kg (328 lb 4.2 oz) 07/12/2025 8:03 AM EDT Height - - Body Mass Index 49.91 06/14/2025 3:13 PM EDT documented in this encounter Functional Status * Over the past 2 weeks, how often have you been bothered by any of the following problems? Question Answer Date of Assessment Author Little interest or pleasure in doing things Not at all 07/12/2025 8:05 AM EDT [place] Feeling down, depressed, or hopeless Not at all 07/12/2025 8:05 AM EDT [place] Patient Health Questionnaire-2 Score 0 07/12/2025 8:05 AM EDT Bernadette Valle * How difficult have these problems made it for you to do your work, take care of things at home, or get along with other people? Answer Date of Assessment Author Not difficult at all 07/12/2025 8:05 AM EDT SheBernadette Valero documented as of this encounter Miscellaneous Notes * Progress Notes - Anna Elkins, OLU, ERROL - 07/12/2025 8:00 AM EDT Gynecology Progress Note Subjective Navid is a 40 yo G0 who presents today for a string check. Doing well. Has had some intense cramping intermittently. Declines bleeding after the first few days. Has no desires for children in the future Review of Systems Constitutional: Negative. HENT: Negative. Eyes: Negative. Respiratory: Negative. Cardiovascular: Negative. Gastrointestinal: Negative. Endocrine: Negative. Genitourinary: Abdominal cramping Musculoskeletal: Negative. Skin: Negative. Allergic/Immunologic: Negative. Neurological: Negative. Hematological: Negative. Psychiatric/Behavioral: Negative. Objective Visit Vitals BP 121/85 Pulse 84 Temp 36.9 ??C (98.5 ??F) Physical Exam Genitourinary: Vulva, bladder and urethral meatus normal. Right Labia: No rash, tenderness, lesions or skin changes. Left Labia: No tenderness, lesions, skin changes or rash. No vaginal discharge, tenderness or bleeding. No cervical motion tenderness, discharge or friability. No IUD strings visualized. HENT: Head: Normocephalic and atraumatic. Right Ear: External ear normal. Left Ear: External ear normal. Cardiovascular: Rate and Rhythm: Normal rate. Pulmonary: Effort: Pulmonary effort is normal. Abdominal: General: Abdomen is flat. Palpations: Abdomen is soft. Musculoskeletal: General: Normal range of motion. Cervical back: Normal range of motion. Neurological: General: No focal deficit present. Mental Status: She is alert and oriented to person, place, and time. Skin: General: Skin is warm and dry. Psychiatric: Mood and Affect: Mood normal. Behavior: Behavior normal. Thought Content: Thought content normal. Judgment: Judgment normal. Vitals and nursing note reviewed. Exam conducted with a dual rate dealer present. Assessment/Plan Assessment & Plan IUD check up Intrauterine contraceptive device threads lost, initial encounter control counseling - IUD strings not visualized during exam. - Discussed need for TVUS to evaluate location of IUD - Reviewed when future US would be needed if it is in correct location - She reports if it expells she would not do another one with these issues. Basic intro to ablationwith tubal. She would consider. - Patient agrees with POC. All questions answered. Time Spent: I personally spent a total of 25 minutes on this encounter. This time includes face to face with patient, counseling and discussion and/or coordination of care. documented in this encounter Plan of Treatment Upcoming Encounters Date Type Department Care Team (Late st Contact Info) Description 06/15/2026 8:00 AM EDT Office Visit Obstetrics & Gynecology [address] [place] [address] Anna Elkins APRN, CNM [address] [facility] [address] [place] [address] documented as of this encounter Visit Diagnoses Diagnosis IUD check up- Primary Intrauterine contraceptive device threads lost, initial encounter control counseling documented in this encounter Additional Health Concerns Assessment Noted Time A fall risk assessment has been complete d for the patient 07/12/2025 8:05 AM EDT A Body Mass Index follow-up plan has been documented for the patient 07/12/2025 8:29 AM EDT documented as of this encounter Care Teams Laborer [employer]er [employer] Relationship Specialty Start Date End Date Jose Rodriguez MD [facility] [place] [address] PCP - General 05/14/23 documented as of this encounter
--- OUTSIDE RECORDS SUMMARY | 2025-07-15 09:15 | XMS_ITS | Encounter Summary ---
Author Organization Healthcare Address [address] [place] [id number] Care Team Providers Care Mechanical Supervisor Name Role Phone Jose Rodriguez MD Primary Care Provider + [phone] Reason for Visit * Reason Comments Procedure Buffet Attendant scan to find iud Encounter Details Date Type Department Care Team ([facility] st Contact Info) Description 07/15/2025 10:15 AM EDT Office Visit Obstetrics & Gynecology [address] [place] [address] Mason Kelsey MD [address] [place] [address] IUD check up (Primary Dx); Intrauterine contraceptive device threads lost, subsequent encounter; Pelvic and perineal pain Social History Tobacco Use Types Packs/Day Years Used Date Smoking Tobacco: Never Smokeless Tobacco: Never Alcohol Use Standard Drinks/Week Comments Yes 0 (1 standard drink = 0.6 oz pur e alcohol) PHQ-2 Answer Date Recorded Patient Health Questionnaire-2 Score 0 07/15/2025 PHQ-9 Answer Date Recorded Patient Health Questionnaire-9 Score 0 07/15/2025 Comments No Sex and Gender Information Value Date Recorded Sex Assigned at Not on file Legal Sex Female 10:49 AM EDT Gender Identity Not on file Sexual Orientation Not on file documented as of this encounter Last Filed Vital Signs Vital Sign Reading Time Taken Comments Blood Pressure 121/85 07/15/2025 10:08 AM EDT Pulse 80 07/15/2025 10:08 AM EDT Temperature 36.7 C (98.1 F) 07/15/2025 10:08 AM EDT Respiratory Rate - - Oxygen Saturation 98% 07/15/2025 10:08 AM EDT Inhaled Oxygen Concentration - - Weight 149 kg (328 lb 7.8 oz) 07/15/2025 10:08 A M EDT Height - - Body Mass Index 49.95 06/14/2025 3:13 PM EDT documented in this encounter Functional Status * Over the past 2 weeks, how often have you been bothered by any of the following problems? Question Answer Date of Assessment Author Little interest or pleasure in doing things Not at all 07/15/2025 10:08 AM Charline Gutierrez Feeling down, depressed, or hopeless Not at all 07/15/2025 10:08 AM Charline Gutierrez Patient Health Questionnaire -2 Score 0 07/15/2025 10:08 AM Charline Gutierrez * Question Answer Date of Assessment Author Trouble falling or staying asleep, or sleeping too much Not at all 07/15/2025 10:08 AM Charline Gutierrez Feeling tired or having geri le energy Not at all 07/15/2025 10:08 AM Chraline Gutierrez Poor appetite or overeating Not at all 07/15/2025 10 :08 AM Charline Gutierrez Feeling bad about yourself - or that you are a failure or have let yourself or your family down Not at all 07/15/2025 10:08 AM Charline Rodriguez Trouble concentrating on thi ngs, such as reading the newspaper or watching television Not at all 07/15/2025 10:08 AM Charline Gutierrez Moving or speaking so slowly that other people could have noticed? Or the opposite - being so fidgety or restless that you have been moving around a lot more than usual. Not at all 07/15/2025 10:08 AM Charline Gutierrez Thoughts that you would be b agueda off or hurting yourself in some way Not at all 07/15/2025 10:08 AM Charline Gutierrez Patient Health Questionnaire -9 Score 0 07/15/2025 10:08 AM Charline Gutierrez * How difficult have these problems made it for you to do your work, take care of things at home, or get along with other people? Answer Date of Assessment Author Not difficult at all 07/15/2025 10:08 AM EDT Charline Ziegler documented as of this encounter Miscellaneous Notes * Progress Notes - Mason Kelsey MD - 07/15/2025 10:15 AM EDT Gynecology Progress Note Subjective Navid is a 40 yo G0 who presents today for a f/u IUD string check. Doing well. Has had some intense cramping intermittently. No bleeding after the first few days. Has no desires for children in the future. Happy. For PIPE INSULATOR TVUS + plan today. Review of Systems Constitutional: Negative. HENT: Negative. Eyes: Negative. Respiratory: Negative. Cardiovascular: Negative. Gastrointestinal: Negative. Endocrine: Negative. Genitourinary: Positive for pelvic pain. Abdominal cramping Musculoskeletal: Negative. Skin: Negative. Allergic/Immunologic: Negative. Neurological: Negative. Hematological: Negative. Psychiatric/Behavioral: Negative. Objective Visit Vitals BP 121/85 Pulse 80 Temp 36.7 ??C (98.1 ??F) Physical Exam Constitutional: Appearance: Normal appearance. Genitourinary: Vulva, bladder and urethral meatus normal. Right Labia: No rash, tenderness, lesions or skin changes. Left Labia: No tenderness, lesions, skin changes or rash. No vaginal discharge, erythema, tenderness or bleeding. No vaginal prolapse present. No vaginal atrophy present. No cervical motion tenderness, discharge or friability. No IUD strings visualized. Uterus is not enlarged or tender. Uterus is midaxial. Pelvic exam was performed with patient in the lithotomy position. HENT: Head: Normocephalic and atraumatic. Right Ear: External ear normal. Left Ear: External ear normal. Nose: Nose normal. Cardiovascular: Rate and Rhythm: Normal rate and regular rhythm. Heart sounds: Normal heart sounds. Pulmonary: Effort: Pulmonary effort is normal. Breath sounds: Normal breath sounds. Abdominal: General: Abdomen is flat. Palpations: Abdomen [...] nursing note reviewed. Exam conducted with a hand suture winder present. PIPE INSULATOR TVUS with US in NL position Assessment/Plan Assessment & Plan IUD check up Orders: US Pelvis Transvaginal; Future Intrauterine contraceptive device threads lost, subsequent encounter Orders: US Pelvis Transvaginal; Future Pelvic and perineal pain Orders: US Pelvis Transvaginal; Future Discussed US findings - reassurance F/U prn NSAIDS prn Happy Voices agreement A total of 30 minutes was spent on this visit with at least more than 50% of the encounter spent incounseling and/or coordinating care including reviewing previous notes, counseling the patient on their identified issues as indicated in the note, discussing previous and/or ordered tests or imaging, prescribing/refilling medications, and documenting the findings in this note, as well as laying out a specific plan of action for this patient. documented in this encounter Plan of Treatment Upcoming Encounters Date Type Department Care Team (Late st Contact Info) Description 06/15/2026 8:00 AM EDT Office Visit Obstetrics & Gynecology [address] [place] [address] Anna Elkins, COST REPORT CLERK, CNM [address] [facility] [address] [place] [address] Pending Results Name Type Priority Associated Diagnoses Date /Time US Pelvis Transvaginal Imaging Routine IUD check up Intrauterine contraceptive device threads lost, subsequent encounter Pelvic and perineal pain 07/15/2025 10:13 AM EDT Scheduled Orders Name Type Priority Associated Diagnoses Orde r Schedule US Pelvis Transvaginal Imaging Routine IUD check up Intrauterine contraceptive device threads lost, subsequent encounter Pelvic and perineal pain Expected: 07/15/2025 (Approximate), Expires: 01/16/2027 documented as of this encounter Visit Diagnoses Diagnosis IUD check up- Primary Intrauterine contraceptive device threads lost, subsequent encounter Pelvic and perineal pain documented in this encounter Additional Health Concerns Assessment Noted Time PHQ-9 Depression Total Score: 0 07/15/20 25 10:08 AM EDT A fall risk assessment has been complete d for the patient 07/15/2025 10:08 AM EDT A Body Mass Index follow-up plan has been documented for the patient 07/15/2025 10:49 AM EDT documented as of this encounter Care Teams Mechanical Supervisor Relationship Specialty Start Date End Date Jose Rodriguez MD [address] [place] [address] PCP - General 05/14/23 documented as of this encounter
--- OUTSIDE RECORDS SUMMARY | 2025-07-15 09:15 | XMS_ITS | Encounter Summary ---
Author Organization Healthcare Address [address] [place] [address] Care Team Providers Care Detasseler Name Role Phone Jose Rodriguez MD Primary Care Provider + [phone] Encounter Details Date Type Department Care Team (Latest Contact Info) Description 07/15/2025 10:15 AM EDT Ancillary Procedure Obstetrics & Gynecology [address] [place] [address] IUD check up; Intrauterine contraceptive device threads lost, subsequent encounter; [...] on file documented as of this encounter Functional Status * Over the past 2 weeks, how often have you been bothered by any of the following problems? Question Answer Date of Assessment Author Little interest or pleasure in doing things Not at all 07/15/2025 10:08 AM EDT Charline Moody Feeling down, depressed, or hopeless Not at all 07/15/2025 10:08 AM EDT Charline Moody Patient Health Questionnaire -2 Score 0 07/15/2025 10:08 AM EDT Charline Moody * Question Answer Date of Assessment Author Trouble falling or staying asleep, or sleeping too much Not at all 07/15/2025 10:08 AM Charline Gutierrez Feeling tired or having geri le energy Not at all 07/15/2025 10:08 AM Charline Gutierrez Poor appetite or overeating Not at [...] Not difficult at all 07/15/2025 10:08 AM Charline Rodriguez documented as of this encounter Plan of Treatment Upcoming Encounters Date Type Department Care Team (Late st Contact Info) Description 06/15/2026 8:00 AM EDT Office Visit Obstetrics & Gynecology [address] [place] [address] Anna Elkins, OLU, CNM [address] [place] [address] Pending Results Name Type Priority Associated Diagnoses Date /Time US Pelvis Transvaginal Imaging Routine IUD check up Intrauterine contraceptive device threads lost, subsequent encounter Pelvic and perineal pain 07/15/2025 10:13 AM EDT documented as of this encounter Visit Diagnoses Diagnosis IUD check up Intrauterine contraceptive device threads [...] documented as of this encounter Care Teams Detasseler Relationship Specialty Start Date End Date Jose Rodriguez MD [address] [place] [address] PCP - General 05/14/23 documented as of this encounter
--- OUTSIDE RECORDS SUMMARY | 2025-08-12 15:30 | XMS_ITS | Encounter Summary ---
Author Organization [facility] Address [address] [place] [address] Care Team Providers Care Gusset Edger Name Role Phone Jose Rodriguez MD Primary Care Provider + [phone] Reason for Visit * Reason Comments EMG * Diagnostic Medical (Routine) - Closed Specialty Diagnoses / Procedures Referred By Antonia lomax Referred To Contact Neurology Diagnoses Bilateral carpal tunnel syndrome BUE Procedures EMG & Nerve Conduction Test Isma Duff MD [address] [place] [id number] Phone: tel: fax: Vu Doan MD [address] [facility] [address] [place] [address] Phone: tel: fax: Referral ID Status Reason Start Date Expiration Date Visits Re quested Visits Authorized [id number] Closed 05/31/2025 08/30/2026 1 1 Encounter Details Date Type Department Care Team (Latest Contact Info) Description 08/12/2025 3:30 PM EST Procedure visit [facility] NEUROLOGY [address] [facility] [address] [place] [phone] Vu Doan MD [address] [facility] [address] [place] [address] Pain in both hands (Primary Dx); Bilateral carpal tunnel syndrome Social History Tobacco Use Types Packs/Day Years Used Date Smoking Tobacco: Never Passive Smoke Exposure: Past Smokeless Tobacco: Never Alcohol Use Standard Drinks/Week Comments Yes 2 (1 standard drink = 0.6 oz pur e alcohol) Comments Unknown Sex and Gender Information Value Date Recorded Sex Assigned at Female 01/10/2025 7:55 AM EDT Legal Sex Female 10:43 AM EDT Gender Identity Not on file Sexual Orientation Straight 01/10/2025 7: 55 AM EDT documented as of this encounter Progress Notes * Vu Doan MD - 08/12/2025 3:[address] [facility] Electrodiagnostic Laboratory Nerve Conduction & EMG Report Patient: Naivd López Date of : 1985 Sex: female Exam Physician: Vu Doan MD Refer Physician: Isma Duff MD Electromyogram and Nerve Conduction Velocity Procedure Note Hx: 40 y.o. right handed female with complaint of pain involving the the upper extremities. Symptoms have been present for several months and were provoked by worse at night. Significant past medicalhistory includes carpal tunnel syndrome. Family history no family history of nerve or muscle disease. Exam: Motor power is normal. There is no atrophy. There are no fasciculations. Deep tendon reflexesare present and symmetrical. Sensory exam is normal. Edx studies of the B UE were performed to evaluate for peripheral neuropathy. NCS Examination For sensory nerve conduction studies, the amplitude is measured [id number], the latency reported is the distal peak latency, and the conduction velocity, if measured, is determined from onset latencies and is over the forearm. For motor nerve conduction studies, the amplitude is measured [id number], the latency reported is the distal onset latency, the conduction velocity is calculated over the forearm, and the F wave latency is the minimum latency. Unless otherwise noted, the hand temperature was monitored continuously and remained between 32??C and 36??C during the performance of the NCSs. Nerve Conduction Studies Anti Sensory Summary Table Stim Site NR Norm Peak (ms) O-P Amp (??V) Norm O-P Amp Onset (ms) Site1 Site2 Delta-0 (ms) Dist (cm) Roberto (m/s) Norm Roberto (m/s) Left Median Anti Sensory (2nd Digit) Wrist <3.6 10.1 >10 1.8 Wrist 2nd Digit 1.8 14.0 78 Right Median Anti Sensory (2nd Digit) Wrist <3.6 29.4 >10 2.9 Wrist 2nd Digit 2.9 14.0 48 Left Radial Anti Sensory (Base 1st Digit) Wrist <3.1 40.5 1.1 Wrist Base 1st Digit 1.1 0.0 Right Radial Anti Sensory (Base 1st Digit) Wrist <3.1 22.3 1.2 Wrist Base 1st Digit 1.2 0.0 Left Ulnar Anti Sensory (5th Digit) Wrist <3.7 26.0 >15.0 2.1 Wrist 5th Digit 2.1 0.0 Right Ulnar Anti Sensory (5th Digit) Wrist <3.7 24.1 >15.0 2.0 Wrist 5th Digit 2.0 0.0 Motor Summary Table Stim Site NR Onset (ms) Norm Onset (ms) O-P Amp (mV) Norm O-P Amp Site1 Site2 Delta-0 (ms) Dist (cm) Roberto (m/s) Norm Roberto (m/s) Left Median Motor (Abd Poll Brev) Wrist 4.1 <4.2 4.4 >4 Elbow Wrist 3.9 22.0 56 >50 Elbow 8.0 4.4 Right Median Motor (Abd Poll Brev) Wrist 3.8 <4.2 8.9 >4 Elbow Wrist 3.9 23.0 59 >50 Elbow 7.7 8.3 Left Ulnar Motor (Abd Dig Minimi) Wrist 2.2 <4.2 5.9 >3 B Elbow Wrist 4.1 24.0 59 >53 B Elbow 6.3 4.3 A Elbow B Elbow 1.4 9.0 64 >53 A Elbow 7.7 5.9 Right Ulnar Motor (Abd Dig Minimi) Wrist 2.2 <4.2 8.0 >3 B Elbow Wrist 4.5 24.0 53 >53 B Elbow 6.7 3.3 A Elbow B Elbow 1.4 9.0 64 >53 A Elbow 8.1 6.9 F Wave Studies NR F-Lat (ms) Lat Norm (ms) L-R F-Lat (ms) L-R Lat Norm Left Median (Mrkrs) (Abd Poll Brev) 31.02 <33 0.48 <2.2 Right Median (Mrkrs) (Abd Poll Brev) 30.50 <33 0.48 <2.2 Left Ulnar (Mrkrs) (Abd Dig Min) 28.20 <36 0.23 <2.5 Right Ulnar (Mrkrs) (Abd Dig Min) 27.97 <36 0.23 <2.5 EMG Examination The study was performed with a concentric needle electrode. Fibrillation and fasciculation activityis graded from none (0) to continuous (4+). The configuration and recruitment pattern of motor unitaction potentials under voluntary control, if not normal, are described below Side Muscle Nerve Root Ins Act Fibs Psw Amp Dur Poly Recrt Int Pat Comment Right Deltoid Axillary C5-6 Nml Nml Nml Nml Nml 0 Nml Nml Right Triceps Radial C6-7-8 Nml Nml Nml Nml Nml 0 Nml Nml Right Biceps Musculocut C5-6 Nml Nml Nml Nml Nml 0 Nml Nml Right PronatorTeres Median C6-7 Nml Nml Nml Nml Nml 0 Nml Nml Right 1stDorInt Ulnar C8-T1 Nml Nml Nml Nml Nml 0 Nml Nml Left Triceps Radial C6-7-8 Nml Nml Nml Nml Nml 0 Nml Nml Left Deltoid Axillary C5-6 Nml Nml Nml Nml Nml 0 Nml Nml Left Biceps Musculocut C5-6 Nml Nml Nml Nml Nml 0 Nml Nml Left PronatorTeres Median C6-7 Nml Nml Nml Nml Nml 0 Nml Nml Left 1stDorInt Ulnar C8-T1 Nml Nml Nml Nml Nml 0 Nml Nml Left Abd Poll Brev Median C8-T1 Nml Nml Nml Nml Nml 0 Nml Nml Right Abd Poll Brev Median C8-T1 Nml Nml Nml Nml Nml 0 Nml Nml NCV FINDINGS: All nerves (as indicated in the following tables) were within normal limits. All F Wave latencies were within normal limits. EMG FINDINGS: All examined muscles (as indicated in the following table) showed no evidence of electrical instability. Conclusion: Normal NCV and EMG of the upper extremities Instrument used: [employer] Performed by: Vu Doan MD documented in this encounter Plan of Treatment Upcoming Encounters Date Type Department Care Team (Late st Contact Info) Description 10/03/2025 1:30 PM EST Office Visit [facility] NEUROLOGY [address] [facility] [address] [place] [phone] Devika Jeager, FISCAL SERVICES MANAGER [address] [facility] [address] [place] [address] 11/28/2025 3:45 PM EST Office Visit [facility] RHE[facility]Y [address] [address] Isma Duff MD 330 [facility] [address] [place] [address] documented as of this encounter Visit Diagnoses Diagnosis Pain in both hands- Primary Bilateral carpal tunnel syndrome Carpal tunnel syndrome documented in this encounter Care Teams Gusset Edger Relationship Specialty Start Date End Date Jose Rodriguez MD [address] [facility] [address] [place] [address] PCP - General Family Medicine 05/23/22 documented as of this encounter
[2025-08-20 17:22] VITALS: PULSE 88; RESP 18; TEMP 36.9; O2SAT 100; BMI 49.4
--- OUTSIDE RECORDS SUMMARY | 2025-08-20 17:34 | XMS_ITS | Encounter Summary ---
Author Organization Healthcare Address [address] [place] [address] Care Team Providers Care Admitting Clerk Name Role Phone Jose Rodriguez MD Primary Care Provider + [phone] Encounter Details Date Type Department Care Team ([facility] Contact Info) Description 05/24/2025 Results Follow-Up Obstetrics & Gynecology [address] [place] [address] Anna Elkins, PRODUCTION PROOFREADER, CN [address] [facility] [address] [place] [address] Social History Tobacco Use Types Packs/Day Years [...] hopeless Not at all 07/15/2025 10:08 AM EMILIANOT Charline Moody Patient Health Questionnaire -2 Score [...] of Assessment Author Not difficult at all 06/14/2025 3:15 PM EDT Darya Hicks am * How difficult have these problems made [...] EDT Office Visit Obstetrics & Gynecology [address] [place] [phone] Anna Elkins, PRODUCTION PROOFREADER, CNM [address] [facility] [address] [place] [address] documented as of this encounter Visit Diagnoses Not on filedocumented in this encounter Additional Health Concerns Assessment Noted Time A fall risk assessment has been complete d for the patient 05/18/2025 10:44 AM EDT A Body Mass Index follow-up plan has been documented for the patient 05/18/2025 11:12 AM EDT documented as of this encounter Care Teams Admitting Clerk Relationship Specialty Start Date End Date Jose Rodriguez MD 1210 [facility] [address] [place] [address] PCP - General 05/14/23 documented as of this encounter
--- OUTSIDE RECORDS SUMMARY | 2025-08-20 17:34 | XMS_ITS | Encounter Summary ---
Author Organization [facility] Address [address] [place] [address] Care Team Providers Care Erecting Engineer Name Role Phone Jose Rodriguez MD Primary Care Provider + [phone] Encounter Details Date Type Department Care Team (Late Contact Info) Description 01/12/2025 Results Follow-Up [facility] RHEUMATOLOGY [address] [address] Isma Duff MD [address] [address] Social History Tobacco Use Types Packs/Day Years [...] AM EDT documented as of this encounter Plan of Treatment Upcoming Encounters Date Type Department Care Team (Late Contact Info) Description 10/03/2025 1:30 PM EST Office Visit [facility] NEUROLOGY [address] [facility] [address] [place] [address] Devika Jaeger APRN [address] [facility] [address] [place] [address] 11/28/2025 3:45 PM EST Office Visit [facility] RHEUMATOLOGY [address] [phone] Isma Duff MD [address] [address] documented as of this encounter Visit Diagnoses Not on filedocumented in this encounter Care Teams Erecting Engineer Relationship Specialty Start Date End Date Jose Rodriguez MD 1210 [facility] [address] [facility] 2 [place] [address] PCP - General Family Medicine 05/23/22 documented as of this encounter
--- OUTSIDE RECORDS SUMMARY | 2025-08-20 17:35 | XMS_ITS | Encounter Summary ---
Author Organization [facility] Address [address] [place] [address] Care Team Providers Care Hand Cloth Cutter Name Role Phone Jose Rodriguez MD Primary Care Provider + [phone] Encounter Details Date Type Department Care Team (Late Contact Info) Description 06/22/2025 Telephone [facility] NEUR[facility] [address] [address] Devika Jaeger, OLU [address] [phone] Social History Tobacco Use Types Packs/Day Years [...] AM EDT documented as of this encounter Miscellaneous Notes * Telephone Encounter - Ayaka Liu MA - 06/22/2025 8:56 AM EDT Provider out, appt rescheduled for same day in the afternoon.. Pt verbalized understanding. documented in this encounter Plan of Treatment Upcoming Encounters Date Type Department Care Team (Late Contact Info) Description 10/03/2025 1:30 PM EST Office Visit [facility] NEUR[facility] [address] [place] [phone] Devika Jaeger APRN [address] [facility] [address] [place] [address] 11/28/2025 3:45 PM EST Office Visit [facility] R[facility] [address] [address] Isma Duff MD [address] [facility] [address] [place] [address] documented as of this encounter Visit Diagnoses Not on filedocumented in this encounter Care Teams Hand Cloth Cutter Relationship Specialty Start Date End Date Jose Rodriguez MD 1210 [facility] [address] [place] [id number] PCP - General Family Medicine 05/23/22 documented as of this encounter
--- OUTSIDE RECORDS SUMMARY | 2025-08-20 17:35 | XMS_ITS | Encounter Summary ---
Author Organization [facility] Address [address] [place] [address] Care Team Providers Care Regional Airline Pilot Name Role Phone Jose Rodriguez MD Primary Care Provider + [phone] Encounter Details Date Type Department Care Team (Late Contact Info) Description 06/09/2025 Results Follow-Up [facility] RHEUMATOLOGY [address] [facility] [address] [place] [address] Chiquita Cash, SPRING SETTER 330 [facility] [address] [place] [address] Social History Tobacco Use Types Packs/Day Years [...] Description 10/03/2025 1:30 PM EST Office Visit [facility] NEUROLOG[facility] [address] [email or web address] [address] [place] [address] Devika Jaeger, SPRING SETTER 610 [facility] [address] [facility] [address] [place] [address] 11/28/2025 3:45 PM EST Office Visit [facility] RHEUMATOLOGY [address] [phone] Isma Duff MD [address] [address] documented as of this encounter Visit Diagnoses Not on filedocumented in this encounter Care Teams Regional Airline Pilot Relationship Specialty Start Date End Date Jose Rodriguez MD 1210 [facility] [address] [facility] 2 [place] [address] PCP - General Family Medicine 05/23/22 documented as of this encounter
--- OUTSIDE RECORDS SUMMARY | 2025-08-20 17:35 | XMS_ITS | Encounter Summary ---
Author Organization Healthcare Address [address] [place] [address] Care Team Providers Care Cut In Worker Name Role Phone Jose Rodriguez MD Primary Care Provider + [phone] Encounter Details Date Type Department Care Team (Latest Contact Info) Description 07/15/2025 Travel Social History Tobacco Use Types Packs/Day Years [...] Not at all 07/15/2025 10 :08 AM EDT Charline Moody Feeling bad about yourself - or that you are a failure or have let yourself or your family down Not at all 07/15/2025 10:08 AM EDT Charline Ziegler Trouble concentrating on thi ngs, such as [...] Questionnaire -9 Score 0 07/15/2025 10:08 AM EDT Charline Moody * How difficult have these problems made it for you to do your work, take care of things at home, or get along with other people? Answer Date of Assessment Author Not difficult at all 07/15/2025 10:08 AM EMILIANOT Charline Ziegler documented as of this encounter Plan of Treatment Upcoming Encounters Date Type Department Care Team (Late st Contact Info) Description 06/15/2026 8:00 AM EDT Office Visit Obstetrics & Gynecology [address] [place] [address] Anna Elkins, SLIP LASTER, CN [address] [facility] [address] [place] [address] documented as of this encounter [...] documented as of this encounter Care Teams Cut In Worker Relationship Specialty Start Date End Date Jose Rodriguez MD [address] [facility] PCP - General 05/14/23 documented as of this encounter
--- OUTSIDE RECORDS SUMMARY | 2025-08-20 17:36 | XMS_ITS | Clinical Summary ---
Author Organization Healthcare Address [address] [place] [address] Care Team Providers Care Division Officer Weapons Department Name Role Phone Jose Rodriguez MD Primary Care Provider + [phone] Allergies No known active allergies Medications furosemide (Lasix) 20 MG tablet Take 1 tablet (20 mg) by mouth 1 (one) time each day. 3 Active levonorgestrel (Mirena, 52 MG,) 20 MCG/DAY IUD 7 Active irbesartan (Avapro) 300 MG tablet TAKE 1 TABLET BY MOUTH EVERY DAY FOR 90 DAYS 4 Active Semaglutide-Nilton ght Management (Wegovy) 2.4 MG/0.75ML solution auto-injector 0.75 mL Subcutaneous once a week; Duration: 30 days 5 Active Active Problems Problem Noted Date Diagnosed Date Class III obesity with body mass index (BMI) of 40.0 or higher 05/14/2023 IIH (idiopathic intracranial hypertension) 05/2305/14/2023 Overview (05/14/2023): Last Assessment & Plan: Schedule for LP and MRI/MRV Head Encounters Date Type Department Care Team Description 07/15/2025 10:15 AM EDT Ancillary Procedure Obstetrics & Gynecology [address] [place] [id number] IUD check up; Intrauterine contraceptive device threads lost, subsequent encounter; Pelvic and perineal pain 07/15/2025 10:15 AM EDT Office Visit Obstetrics & Gynecology [address] [place] [address] Mason Kelsey MD IUD check up (Primary Dx); Intrauterine contraceptive device threads lost, subsequent encounter; Pelvic and perineal pain 07/15/2025 Travel 07/12/2025 8:00 AM EDT Office Visit Obstetrics & Gynecology [address] [place] [address] Anna Elkins APRN, CNM IUD check up (Primary Dx); Intrauterine contraceptive device threads lost, initial encounter; control counseling 07/12/2025 Travel 06/14/2025 3:15 PM EDT Ancillary Procedure Obstetrics & Gynecology [address] [place] [address] Intrauterine contraceptive device threads lost, subsequent encounter 06/14/2025 3:00 PM EDT Procedure Visit Obstetrics & Gynecology [address] [place] [address] Mason Kelsey MD Family planning (Primary Dx); Encounter for IUD removal and reinsertion; Intrauterine contraceptive device threads lost, subsequent encounter; Cervical high risk HPV (human papillomavirus) test positive 06/14/2025 Travel 05/30/2025 8:40 AM EDT Procedure Visit Obstetrics & Gynecology [address] [place] [address] Anna Elkins APRN, CNM Encounter for IUD removal and reinsertion (Primary Dx) 05/30/2025 Travel 05/24/2025 Results Follow-Up Obstetrics & Gynecology [address] [place] [address] Anna Elkins APRN, CNM from Last 3 Months Family History Medical History Relation Name Comments Diabetes Father Hypertension Father Hypertension Mother Relation Name Status Comments Father Alive Mother Alive Social History Tobacco Use Types Packs/Day Years Used Date Smoking Tobacco: Never Smokeless Tobacco: Never Tobacco Cessation:Counseling Given: Not Answered Alcohol Use Standard Drinks/Week Comments Yes 0 [...] on file Sexual Orientation Not on file Last Filed Vital Signs Vital Sign Reading Time Taken Comments Blood Pressure 121/85 07/15/2025 10:08 AM EDT Pulse 80 07/15/2025 10:08 AM EDT Temperature 36.7 C (98.1 F) 07/15/2025 10:08 AM EDT Respiratory Rate 20 05/18/2025 10:42 AM EDT Oxygen Saturation 98% 07/15/2025 10:08 AM EDT Inhaled Oxygen Concentration - - Weight 149 kg (328 lb 7.8 oz) 07/15/2025 10:08 A M EDT Height 172.7 cm (5' 8 ) 06/14/2025 3:13 PM EDT Body Mass Index 49.95 06/14/2025 3:13 PM EDT Plan of Treatment Upcoming Encounters Date Type Department Care Team (Late st Contact Info) Description 06/15/2026 8:00 AM EDT Office Visit Obstetrics & Gynecology [address] [place] [address] Anna Elkins, RIGHT OF WAY SUPERVISOR, CN [address] [facility] [address] [place] [address] Health Maintenance Due Date Last Done Comments [facility]-HIV Screening 1987 [facility]-Hepatitis C Screening 1987 [facility]-Infant/Child/Adol SDOH Screenings 1987 [facility]-Varicella Vaccines (1 of 2 - 13+ 2-dose series) 02/23/2000 [facility]- SDOH Screenings 2005 [facility]-Adult SDOH Screenings 2005 [facility]-DTaP,Tdap,and Td Vaccines (1 - Tdap) 2006 [facility]-Hepatitis B Vaccines (1 of 3 - 19+ 3-dose series) 2006 HPV Vaccines (1 - 3-dose SCDM series) 2014 [facility]-[id number]-87 Vaccine (2 - season) 2025 08/31/2021 [facility]-Influenza Vaccine (#1) 2025 [facility]-Depression Screening 07/15/2026 07/15/2025, 07/06 [facility]-Pap Smear 05/18/2028 05/18/2025, 05/06, 05/14/2023 [facility]-Cervical Cancer Screening 05/18/2030 [facility]-HPV/Cotest 05/18/2030 05/18/2025, 05/06, 05/14/2023 [facility]-Zoster Vaccines (1 of 2) 2037 [facility]-Obesity Intervention Completed 025, 07/12/2025, 06/14/2025, Additional history exists [facility]-HIB Vaccines Aged Out No longer e ligible based on patient's age to complete this topic [facility]-Hepatitis A Vaccines Aged Out No longer eligible based on patient's age to complete this topic [facility]-IPV Vaccines Aged Out No longer e ligible based on patient's age to complete this topic [facility]-Pneumococcal Vaccine: Pediatrics (0 to 5 Years) and At-Risk Patients (6 to 49 Years) Aged Out No longer eligible based on patient's age to complete this topic [facility]-Rotavirus Vaccines Aged Out No lo nger eligible based on patient's age to complete this topic Procedures Procedure Name Priority Date/Time Associated Diagnosis Comments NV REMOVE INTRAUTERINE DEVICE Routine 06/14/2025 3:42 PM EDT Encounter for IUD removal and reinsertion NV INSERT INTRAUTERINE DEVICE Routine 06/14/2025 3:42 PM EDT Encounter for IUD removal and reinsertion US PELVIS TRANSVAGINAL Routine 06/14/2025 3:10 PM EDT Intrauterine contraceptive device threads lost, subsequent encounter NV REMOVE INTRAUTERINE DEVICE Routine 05/30/2025 9:35 AM EDT Encounter for IUD removal and reinsertion POCT , URINE Routine 05/30/2025 9:17 AM EDT Encounter for IUD removal and reinsertion PAP TEST - CYTOLOGY Routine 05/18/2025 1 1:09 AM EDT Encounter for gynecological examination without abnormal finding from Last 3 Months or Most Recently Relevant to Health Maintenance Results * NV INSERT INTRAUTERINE DEVICE, NV REMOVE INTRAUTERINE DEVICE (06/14/2025 3:42 PM EDT) Narrative Mason Kelsey MD - 06/14/2025 3:42 PM EDT Mason Kelsey MD 06/14/2025 3:45 PM IUD Management Date/Time: 06/14/2025 3:42 PM Performed by: Mason Kelsey MD Authorized by: Mason Kelsey MD Procedure: IUD removal and insertion Consent obtained by patient, parent, or legal power of chief supply chain officer - including discussion of procedure risks and benefits, patient questions answered, and patient education provided: yes Reason for removal: patient request Strings visualized: no Cervix cleaned with: chlorhexidine Tenaculum applied to cervix: yes (Allis) Cervix manually dilated: no IUD grasped by forceps: yes Performed with ultrasound guidance: no IUD removed: yes Removed without complications: yes IUD intact: yes risk: reasonably certain the patient is not Immediately prior to procedure a time out was called: yes Pelvic exam performed: yes Speculum placed in vagina: yes Cervix cleaned and prepped: yes Tenaculum/Allis/Ring Forceps applied to cervix: yes Anesthesia used: no Uterus sound depth (cm): 7.5 IUD inserted without complications: yes OSM: 1 each levonorgestrel 20 MCG/DAY Strings trimmed to (cm): 3 Patient tolerated procedure well: yes Inserted with ultrasound guidance: no Transvaginal sono confirmed fundal placement: no Estimated blood loss (mL): 0 Intended removal date: 8 years us Mason Kelsey MD IN CLINIC/BEDSIDE ORDERABLES Fi nal Result * US Pelvis Transvaginal (06/14/2025 3:10 PM EDT) Anatomical Region Laterality Modality Pelvis Ultrasound 06/14/2025 3:23 PM EDT Impressions 06/14/2025 3:39 PM EDT The OB Ultrasound you requested has been resulted. Please navigate to the Imaging tab in Linkfluence for review. This message has been generated by the interface. Narrative Procedure Note Mason Kelsey MD - 06/14/2025 IMPRESSION: The OB Ultrasound you requested has been resulted. Please navigate to theImaging tab in Linkfluence for review. This message has been generated by theinterface. us Mason Kelsey MD IMG US PROCEDURES Final Result * NV REMOVE INTRAUTERINE DEVICE (05/30/2025 9:35 AM EDT) Narrative Anna Elkins APRN, CNM - 05/30/2025 9:35 AM EDT Anna Elkins APRN, CNM 05/30/2025 9:52 AM IUD Management Date/Time: 05/30/2025 9:35 AM Performed by: Anna Elkins APRN, CNM Authorized by: Anna Elkins APRN, CNM Procedure: IUD removal Consent obtained by patient, parent, or legal power of chief supply chain officer - including discussion of procedure risks and benefits, patient questions answered, and patient education provided: yes Reason for removal: patient request Strings visualized: no Cervix cleaned with: iodopovidone Tenaculum applied to cervix: yes Cervix manually dilated: no IUD grasped by forceps: no Performed with ultrasound guidance: no IUD removed: no Unable to remove IUD, refer for: ultrasound and removal with another clinician Removal comments: Unable to visualize IUD strings. Has previously had US in 05/2023 to confirm IUD in place with missing strings during annual exam. Long forceps used and trial of removal by Manuel Horvath APRN + Eveline Elkins APRN, CNM without success. Pt tolerated well. Post procedure instructions reviewed. Pt is scheduled for a colposcopy in June with Dr. Kelsey. Discussed patient with him and he was agreeable to do IUD removal/reinsertion + Colpo at that visit. us Anna Elkins APRN, CNM IN CLINIC/BEDSIDE ORDER HARPER Final Result * POCT Urine (05/30/2025 9:17 AM EDT) Urine - Point of Care Negative Negative - women after 7 weeks gestation and dilute urine (specific gravity <1.010) may have false negative results. Plasma HCG testing is recommended. Test performed at Point of Care. INTERNAL QC OK, PREG URINE OKAY KIT LOT NUMBER, PREG URINE [phone] KIT EXPIRATION DATE, PREG URINE 10/17/2026 Urine Urine specimen obtained by clean catch procedure / Unknown 05/30/2025 9:17 AM EDT Anna Elkins APRN, CNM POINT OF CARE TEST ENTE R/EDIT ORDERABLES Final Result * Pap Test (05/18/2025 11:09 AM EDT) Case Report Cytology Case: [id number] Authorizing Provider: Anna Elkins APRN, CNM Collected: 05/18/2025 1109 Ordering Location: Obstetrics & Gynecology Received: 05/19/2025 1253 First Screen: Pilar Montaño Specimen: ThinPrep Pap Test, Liquid-Based Cervical/Vaginal 05/20/2025 11:05 AM EDT [facility] Interpretation NEGATIVE FOR INTRAEPITHELIAL LESION OR MALIGNANCY 05/20/2025 11:05 AM EDT [facility] at 1105 EDT Specimen Adequacy Satisfactory for evaluation; endocervical/alfred sformation zone component present. Slide imaged by the ThinPrep Imaging system and selected 22 gao reviewed then full manual screening. 05/20/2025 11:05 AM EDT [facility] Cervical cytology is a screening test primarily for squamous cancers and precursors and has associated false negative and positive results. New technologies such as liquid based sampling may decrease but will not eliminate all false negative results. Regular screening and follow-up of unexplained clinical signs and symptoms are recommended to minimize false negative results. Please see the ASCCP website (www.asccp.org)fo r followup recommendations. If HPV testing was requested, correlation with the results is suggested (please call Microbiology at [phone] for results). 05/20/2025 11:05 AM EDT [facility] Menstrual Status Not Applicable 05/06 11:05 AM EDT [facility] Contraceptive History Intrauterine device 05/20/2025 11:05 AM EDT [facility] Screening Type Routine Screen 2024 11:05 AM EDT [facility] High Risk? No 05/20/2025 11:05 AM EDT [facility] HPV Testing Requested? Request HPV Testing Regardless of Pap Test Findings 05/20/2025 11:05 AM EDT [facility] Previous Cancer History No 05/20/2025 11:05 AM EDT [facility] Clinical Information Z01.419 - Encounter for gynecological examination without abnormal finding [ICD-10-CM] 05/20/2025 11:05 AM EDT [facility] Thin Prep Vaginal and cervical cytologic material / Unknown 05/18/2025 11:09 AM EDT 05/19/2025 12:53 PM EDT Anna Elkins APRN, CNM LAB CYTOLOGY ORDERABLES Final Result [facility] [address] [place] [address] from Last 3 Months or Most Recently Relevant to Health Maintenance Insurance [id number] [address] Care Teams Division Officer Weapons Department Relationship Specialty Start Date End Date Jose Rodriguez MD [address] [facility] [address] [place] [address] PCP - General 05/14/23
--- OUTSIDE RECORDS SUMMARY | 2025-08-20 17:36 | XMS_ITS | Encounter Summary ---
Author Organization [facility] Address [address] [place] [address] Care Team Providers Care Slicing Machine Operator/Tender Name Role Phone Jose Rodriguez MD Primary Care Provider [phone] Encounter Details Date Type Department Care Team (Latest Contact Info) Description 08/12/2025 Travel Social History Tobacco Use Types Packs/Day [...] Description 10/03/2025 1:30 PM EST Office Visit [facility] [address] [facility] [address] [place] [address] Devika Jaeger, OLU [address] [facility] [address] [place] [address] 11/28/2025 3:45 PM EST Office Visit [facility] [address] [address] Isma Duff MD [address] [address] documented as of this encounter Visit Diagnoses Not on filedocumented in this encounter Care Teams Slicing Machine Operator/Tender Relationship Specialty Start Date End Date Jose Rodriguez MD [address] [facility] [address] [facility] [address] [place] [address] PCP - General Family Medicine 05/23/22 documented as of this encounter
--- OUTSIDE RECORDS SUMMARY | 2025-08-20 17:36 | XMS_ITS | Clinical Summary ---
Author Organization [facility] Address [address] [place] [address] Care Team Providers Care Circus Agent Name Role Phone Jose Rodriguez MD Primary Care Provider + [phone] Allergies No known active allergies Medications irbesartan (AVAPRO) 300 MG tablet TAKE 1 TABLET BY MOUTH EVERY DAY FOR 30 DAYS 2 Active Levonorgestrel (Mirena, 52 MG,) 20 MCG/DAY intrauterine device IUD Active furosemide (LASIX) 20 MG tablet Take 1 tablet by mouth Daily. 90 tablet 3 4 Active naproxen (Naprosyn) 500 MG tablet Take 1 tablet by mouth 2 (Two) Times a Day As Needed for Mild Pain. Take 1 tablet (500 mg) by oral route 2 times every day with food 60 tablet 6 5 Active Semaglutide-Weigh t Management (Wegovy) 2.4 MG/0.75ML solution auto-injector 0.75 mL 1 (One) Time Per Week. Active fluorometholone (FML) 0.1 % ophthalmic suspension INSTILL 1 DROP INTO AFFECTED EYE(S) 4 TIMES DAILY FOR 2 DAYS, THEN THREE TIMES DAILY FOR 2 DAYS, THEN TWICE DAILY FOR 2 DAYS, THEN 1 ONCE DAILY FOR 2 DAYS 5 Active Active Problems Problem Noted Date Diagnosed Date Pain in both hands 08/12/2025 Multiple joint pain 01/11/2025 Assessment & Plan (05/31/2025 4:06 PM EDT): Approximately 2021. Gradual onset. Pain primarily in the trochanters, knees, and ankles. 1 episode of tendinitis right hand, resolved with steroids. No recurrence. ALESIA, CCP, and rheumatoid factor negative. Sedimentation rate normal. CRP mildly elevated. HLA-B27 negative. Uric acid normal. 14.3.3 ETA borderline. X-rays of knees and ankle show degenerative changes only. She again has no exam evidence of inflammatory arthritis. 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 Fortunately, she has had no flares in the interim. She did have a very low positive 14.3.3 ETA. Rheumatoid factor and CCP were negative. Regardless, she is doing well today with no soft tissue swelling or synovitis. I will recheck rheumatoid arthritis labs. I will see her in 6 months. Months. I told her to call me if she has a flare. She can use naproxen 500 mg twice daily for flares. She has not needed this. Risks of nonsteroidal anti-inflammatory drugs discussed including GI upset, GI bleeding, renal and hepatic risk, and the risks of cardiovascular disease. Warned not to take with other NSAIDs including [id number] NSAIDs. Orders: 14.3.3 ETA, Rheum. Arthritis Comprehensive Metabolic Panel CBC Auto Differential C-reactive Protein Sedimentation Rate Cyclic Citrul Peptide Antibody, IgG / IgA Rheumatoid Factor Assessment & Plan (01/20/2025 4:32 PM EDT): Approximately 2021. Gradual onset. Pain primarily in the trochanters, knees, and ankles. 1 episode of tendinitis right hand, resolved with steroids. No recurrence. ALESIA, CCP, and rheumatoid factor negative. Sedimentation rate normal. CRP mildly elevated. HLA-B27 negative. Uric acid normal. 14.3.3 ETA borderline. X-rays of knees and ankle show degenerative changes only. I see no findings of inflammatory arthritis. 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 She did have a very low positive 14.3.3 ETA. Rheumatoid factor and CCP were negative. Regardless, she is doing well today with no soft tissue swelling or synovitis. I will watch her closely. I will see her in 3 months. I told her to call me if she has a flare. She can use naproxen 500 mg twice daily for flares. Risks of nonsteroidal anti-inflammatory drugs discussed including GI upset, GI bleeding, renal and hepatic risk, and the risks of cardiovascular disease. Warned not to take with other NSAIDs including [id number] NSAIDs. Assessment & Plan (01/11/2025 1:57 PM EDT): Approximately 2021. Gradual onset. Pain primarily in the trochanters, knees, and ankles. 1 episode of tendinitis right hand, resolved with steroids. No recurrence. ALESIA, CCP, and rheumatoid factor negative. Sedimentation rate normal. CRP mildly elevated. I see no findings of inflammatory arthritis. She is morbidly obese and her pain is primarily in weightbearing joints. I will x-ray her knees and ankles today. Her hip pain is primarily in her trochanteric region. I suspect this is early degenerative disease and associated with her work which has her standing all day. She also has symptoms consistent with carpal tunnel syndrome. I will have her wear night splints. If no better by follow-up she will need nerve conduction studies. I will see her in follow-up in about 6 weeks. Orders: 14.3.3 ETA, Rheum. Arthritis; Future CBC Auto Differential; Future Comprehensive Metabolic Panel; Future C-reactive Protein; Future Cyclic Citrul Peptide Antibody, IgG / IgA; Future Rheumatoid Factor; Future Sedimentation Rate; Future HLA-B27 Antigen; Future Uric Acid; Future Bilateral hip pain 01/11/2025 Assessment & Plan (05/31/2025 4:06 PM EDT): Consistent with trochanteric bursitis. This continues to be a problem. We discussed injection and physical therapy and she declined. Assessment & Plan (01/20/2025 4:32 PM EDT): Consistent with trochanteric bursitis. This continues to be a problem. Assessment & Plan (01/11/2025 1:57 PM EDT): Consistent with trochanteric bursitis. Chronic pain of both knees 01/11/2025 Assessment & Plan (05/31/2025 4:06 PM EDT): She has genu recurvatum and good range of motion. She has early osteoarthritis. X-rays showed mild to moderate osteoarthritis. Weight loss would be particularly important for her. We have discussed this. Assessment & Plan (01/20/2025 4:32 PM EDT): She has genu recurvatum and good range of motion. I suspect she has early osteoarthritis. X-rays showed mild to moderate osteoarthritis. Weight loss would be particularly important for her. Assessment & Plan (01/11/2025 1:57 PM EDT): She has genu recurvatum and good range of motion. I suspect she has early osteoarthritis. Weight loss would be particularly important for her. Orders: XR Knee 1 or 2 View Bilateral Tendinitis of right hand 01/11/2025 Assessment & Plan (05/31/2025 4:06 PM EDT): She has had 2 episodes of pain and swelling in her right hand. 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 Assessment & Plan (01/20/2025 4:32 PM EDT): She has had 2 episodes of pain and swelling in her right hand. 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 Assessment & Plan (01/11/2025 1:57 PM EDT): 1 episode 2023, resolved without recurrence. Chronic pain of both ankles 01/11/2025 Assessment & Plan (05/31/2025 4:06 PM EDT): X-rays showed mild osteoarthritis. Assessment & Plan (01/20/2025 4:32 PM EDT): X-rays showed mild osteoarthritis. Assessment & Plan (01/11/2025 1:57 PM EDT): I will x-ray today. Exam is generally unremarkable but I suspect early osteoarthritis. Orders: XR Ankle 3+ View Bilateral IIH (idiopathic intracranial hypertension) 05/23 Assessment & Plan (05/23/2022 9:25 AM EDT): Schedule for LP and MRI/MRV Head Resolved Problems Problem Noted Date Diagnosed Date Resolved Date Bilateral carpal tunnel syndrome 08/12/2025 08/12/2025 Encounters Date Type Department Care Team Description 08/12/2025 3:30 PM EST Procedure visit [facility] [address] [place] [address] Vu Doan MD Pain in both hands (Primary Dx); Bilateral carpal tunnel syndrome 08/12/2025 Travel 06/22/2025 Telephone [facility] [address] [place] [address] Devika Jaeger, MANAGER WOMEN 06/09/2025 Results Follow-Up [facility] [address] [place] [phone] Chiquita Cash, MANAGER WOMEN 05/31/2025 4:00 PM EDT Office Visit [facility] [address] [place] [phone] Isma Duff MD Multiple joint pain (Primary Dx); Bilateral hip pain; Chronic pain of both knees; Tendinitis of right hand; Chronic pain of both ankles; Bilateral carpal tunnel syndrome 05/31/2025 Travel from Last 3 Months Family History Medical History Relation Name Comments Diabetes Brother Diabetes Father Hypertension Father Stroke Maternal Grandfather Michael Arthritis Maternal Grandmother Marion Sujatha Dementia Maternal Grandmother Marion Sujatha Diabetes Maternal Grandmother Marion Sujatha Hypertension Mother Arthritis Paternal Grandmother Colon cancer Paternal Grandmother Diabetes Paternal Grandmother Relation Name Status Comments Brother Father Maternal Grandfather Michael Maternal Grandmother Marion Sujatha Mother Paternal Grandmother Social History Tobacco Use Types Packs/Day Years Used Date Smoking Tobacco: Never Passive Smoke Exposure: Past Smokeless Tobacco: Never Tobacco Cessation:Counseling Given: Not Answered Alcohol Use Standard Drinks/Week Comments Yes 2 (1 standard drink = 0.6 oz pur e alcohol) Comments Unknown Sex and Gender Information Value Date Recorded Sex Assigned at Female 01/10/2025 7:55 AM EDT Legal Sex Female 10:43 AM EDT Gender Identity Not on file Sexual Orientation Straight 01/10/2025 7: 55 AM EDT Last Filed Vital Signs Vital Sign Reading Time Taken Comments Blood Pressure 130/74 01/20/2025 4:02 PM EDT Pulse 82 05/31/2025 3:42 PM EDT Temperature 36.1 C (97 F) 05/31/2025 3:42 PM EDT Respiratory Rate 20 10/02/2022 9:16 AM EST Oxygen Saturation 98% 10/01/2024 8:39 AM EST Inhaled Oxygen Concentration - - Weight 146 kg (321 lb) 05/31/2025 3:42 PM EDT Height 172.7 cm (5' 8 ) 05/31/2025 3:42 PM EDT Body Mass Index 48.81 05/31/2025 3:42 PM EDT Plan of Treatment Upcoming Encounters Date Type Department Care Team (Late st Contact Info) Description 10/03/2025 1:30 PM EST Office Visit [facility] [address] [phone] Devika Jaeger APRN [address] [address] 11/28/2025 3:45 PM EST Office Visit [facility] [address] [phone] Isma Duff MD [address] [address] Health Maintenance Due Date Last Done Comments Annual Gynecologic Pelvic an d Breast Exam 1987 TDAP/TD VACCINES (1 - Tdap) 2006 PAP SMEAR 02/23/2008 ANNUAL PHYSICAL 05/23/2022 HEPATITIS C SCREENING 05/23/2022 INFLUENZA VACCINE 05/06/2025 Pneumococcal Vaccine 0-49 Aged Out No longer eligible based on patient's age to complete this topic Procedures Procedure Name Priority Date/Time Associated Diagnosis Comments CBC AND DIFFERENTIAL Routine 05/31/2025 4:20 PM EDT RHEUMATOID FACTOR, QUANT Routine 05/31/2025 4:20 PM EDT Multiple joint pain CYCLIC CITRUL PEPTIDE ANTIBODY, IGG/IGA Routine 05/31/2025 4:20 PM EDT Multiple joint pain SEDIMENTATION RATE Routine 05/31/2025 4: 20 PM EDT Multiple joint pain C-REACTIVE PROTEIN Routine 05/31/2025 4: 20 PM EDT Multiple joint pain COMPREHENSIVE METABOLIC PANEL Routine 05/31/2025 4:20 PM EDT Multiple joint pain 14.3.3 ETA, RHEUM. ARTHRITIS Routine 05/31/2025 4:20 PM EDT Multiple joint pain from Last 3 Months Results * 14.3.3 ETA, Rheum. Arthritis (05/31/2025 4:20 PM EDT) [facility] 14.3.3 ETA, Rheum. Arthritis <0.20 ng/mL [facility] Comment: Reference Range: < 0.20 Comments: 14-3-3 eta protein is a joint-derived, proinflammatory ditcher operator that is implicated in the joint erosion process and pathogenesis of RA. Serum 14-3-3 eta is elevated in both early and established RA. - Diagnostic value: 14-3-3 eta is highly specific for RA. Serum 14-3-3 eta may be especially helpful in identifying patients with early RA where it provides a 15% incremental benefit to the diagnostic sensitivity of markers, Rheumatoid Arthritis (RA) Factor and Cyclic Citrullinated Peptide (CCP) Antibodies, i.e. An additional 15% of early RA patients may be detected by 14-3-3 eta (1). - Correlation with radiographic evidence of joint damage. Positive serum 14-3-3 eta levels are associated with higher rates of joint damage as measured by radiographic assessments (Sharp/van cricket Heijde Score) (2). - Serum 14-3-3 eta levels above a threshold of 0.50 ng/ml identify RA patients who will have more rapid radiographic progression, even those who may be in SDAI remission (1). References: 1. Mick N, et al. Serum levels of 14-3-3 eta protein supplement C-reactive protein and rheumatoid arthritis- associated antibodies to predict clinical and radiographic outcomes in a prospective cohort of patients with recent-onset inflammatory polyarthritis. Arthritis Res Ther 2016;18:37 2. Alexx MARROQUIN, et al. 14-3-3 eta is a novel ditcher operator associated with the pathogenesis of rheumatoid arthritis and joint damage. Arthritis Res Ther 2014;16:R99. This test was developed and its performance characteristics determined by [facility]. It has not been cleared or approved by the Food and Drug Administration. Blood 05/31/2025 4:20 PM EDT 05/31/2025 Narrative [facility] (AMBULATORY) - 06/09/2025 2:07 PM EDT Performed at: 02 - [facility] [address] [place] [id number] Food Services Manager: Ray Agarwal MD, Phone: [phone] Patient Fasting: N us Isma Duff MD LAB BLOOD ORDERABLES Final Res ult Performing Organization Address [facility] Co de Phone Number [facility] [address] [place] [address], [facility] [address] [place], [place] [id number], * Rheumatoid Factor (05/31/2025 4:20 PM EDT) [facility] RA Latex Turbid 10.0 <14.0 IU/mL [facility] Blood 05/31/2025 4:20 PM EDT 05/31/2025 Narrative [facility] (AMBULATORY) - 06/09/2025 2:07 PM EDT Performed at: - [address] [id number] Food Services Manager: Vik Kwan PhD, Phone: [phone] Patient Fasting: N us Isma Duff MD LAB BLOOD ORDERABLES Final Res ult Performing Organization Address [facility]/ZIP Co de Phone Number [facility] [address] [place] [address], [facility] [address] [place] [address], * Cyclic Citrul Peptide Antibody, IgG / IgA (05/31/2025 4:20 PM EDT) [facility] CCP Antibodies IgG/IgA 2 0 - 19 units [facility] Comment: Negative <20 Weak positive 20 - 39 Moderate positive 40 - 59 Strong positive >59 Blood 05/31/2025 4:20 PM EDT 05/31/2025 Narrative [facility] ([facility]) - 06/09/2025 2:07 PM EDT Performed at: [address] [id number] Food Services Manager: Vik Kwan PhD, Phone: [phone] Patient Fasting: N us Isma Duff MD LAB BLOOD ORDERABLES Final Res ult Performing Organization Address City/[facility]/ZIP Co de Phone Number [facility] [address] [place] [address], [facility] [address] [place] [address], * Sedimentation Rate (05/31/2025 4:20 PM EDT) [facility] Sed Rate 25 0 - 32 mm/hr [facility] Blood 05/31/2025 4:20 PM EDT 05/31/2025 Narrative [facility] (AMBULATORY) - 06/09/2025 2:07 PM EDT Performed at: [address] [id number] Food Services Manager: Vik Kwan PhD, Phone: [phone] Patient Fasting: N us Isma Duff MD LAB BLOOD ORDERABLES Final Res ult [facility] (AMBULATORY) [address] [place] [address], [facility] [address] [place] [address], * CBC & Differential (05/31/2025 4:20 PM EDT) [facility] WBC 10.0 3.4 - 10.8 x10E3/uL [facility] RBC 4.76 3.77 - 5.28 x10E6/uL [facility] Hemoglobin 13.3 11.1 - 15.9 g/dL [facility] Hematocrit 41.6 34.0 - 46.6 % [facility] MCV 87 79 - 97 fL [facility] MCH 27.9 26.6 - 33.0 pg [facility] MCHC 32.0 31.5 - 35.7 g/dL [facility] RDW 12.6 11.7 - 15.4 % [facility] Platelets 309 150 - 450 x10E3/uL [facility] Neutrophil Rel % 69 Not Estab. % [facility] Lymphocyte Rel % 22 Not Estab. % [facility] Monocyte Rel % 7 Not Estab. % [facility] Eosinophil Rel % 1 Not Estab. % [facility] Basophil Rel % 1 Not Estab. % [facility] Neutrophils Absolute 7.0 1.4 - 7.0 x10E3/uL [facility] Lymphocytes Absolute 2.2 0.7 - 3.1 x10E3/uL [facility] Monocytes Absolute 0.7 0.1 - 0.9 x10E3/uL [facility] Eosinophils Absolute 0.1 0.0 - 0.4 x10E3/uL [facility] Basophils Absolute 0.1 0.0 - 0.2 x10E3/uL [facility] Immature Granulocyte Rel % 0 Not Estab. % [facility] Immature Grans Absolute 0.0 0.0 - 0.1 x10E3/uL [facility] 05/31/2025 4:20 PM EDT 05/31/2025 Narrative [facility] (AMBULATORY) - 06/09/2025 2:07 PM EDT Performed at: - [address] [id number] Food Services Manager: Vik Kwan PhD, Phone: [phone] Patient Fasting: N us Isma Duff MD LAB BLOOD ORDERABLES Final Res ult Performing Organization Address [facility]/ZIP Co de Phone Number [facility] [address] [place] [address], [facility] [address] [place] [address], * (ABNORMAL) C-reactive Protein (05/31/2025 4:20 PM EDT) [facility] C-Reactive Protein 14(H) 0 - 10 mg/L [facility] Blood 05/31/2025 4:20 PM EDT 05/31/2025 Narrative [facility] (AMBULATORY) - 06/09/2025 2:07 PM EDT Performed at: 01 - [address] [id number] Food Services Manager: Vik Kwan PhD, Phone: [phone] Patient Fasting: N us Isma Duff MD LAB BLOOD ORDERABLES Final Res ult Performing Organization Address [facility]/ZIP Co de Phone Number [facility] [address] [place] [address], [facility] [address] [place] [address], * Comprehensive Metabolic Panel (05/31/2025 4:20 PM EDT) Pathologist [facility] Glucose 74 70 - 99 mg/dL [facility] BUN 18 6 - 20 mg/dL [facility] Creatinine 0.94 0.57 - 1.00 mg/dL [facility] EGFR Result 80 >59 mL/min/1.7 3 [facility] BUN/Creatinine Ratio 19 9 - 23 [facility] Sodium 140 134 - 144 mmol/L [facility] Potassium 4.1 3.5 - 5.2 mmol/L [facility] Chloride 102 96 - 106 mmol/L [facility] Total CO2 24 20 - 29 mmol/L [facility] Calcium 8.9 8.7 - 10.2 mg/dL [facility] Total Protein 6.5 6.0 - 8.5 g/dL [facility] Albumin 4.1 3.9 - 4.9 g/dL [facility] Globulin 2.4 1.5 - 4.5 g/dL [facility] Total Bilirubin 0.3 0.0 - 1.2 mg/dL [facility] Alkaline Phosphatase 68 44 - 121 IU/L [facility] Comment: Effective June 20, 2025 Alkaline Phosphatase reference interval will be changing to: Age Male Female 0 - 5 days 47 - 127 47 - 127 6 - 10 days 29 - 242 29 - 242 11 - 20 days 109 - 357 109 - 357 21 - 30 days 94 - 494 94 - 494 1 - 2 months 149 - 539 149 - 539 3 - 6 months 131 - 452 131 - 452 7 - 11 months 117 - 401 117 - 401 12 months - 6 years 158 - 369 158 - 369 7 - 12 years 150 - 409 150 - 409 13 years 156 - 435 78 - 227 14 years 114 - 375 64 - 161 15 years 88 - 279 56 - 134 16 years 74 - 207 51 - 121 17 years 63 - 161 47 - 113 18 - 20 years 51 - 125 42 - 106 21 - 50 years 47 - 123 41 - 116 51 - 80 years 49 - 135 51 - 125 >80 years 48 - 129 48 - 129 AST (SGOT) 15 0 - 40 IU/L [facility] ALT (SGPT) 18 0 - 32 IU/L [facility] Blood 05/31/2025 4:20 PM EDT 05/31/2025 Narrative [facility] ([facility]) - 06/09/2025 2:07 PM EDT Performed at: 01 - [facility] [address] [id number] Food Services Manager: Vik Kwan PhD, Phone: [phone] Patient Fasting: N us Isma Duff MD LAB BLOOD ORDERABLES Final Res ult [facility] ([facility]BULATORY) [address] [place] [address], [place] [phone] [facility] [address] [place] [address], [place] [phone] from Last 3 Months Insurance [facility] PPO Care Teams Circus Agent Relationship Specialty Start Date End Date Jose Rodriguez MD [address] [place] [address] [place] [address] PCP - General Family Medicine 05/23/22
--- OUTSIDE RECORDS SUMMARY | 2025-08-20 17:38 | XMS_ITS | Encounter Summary ---
Author Organization [facility] Address [address] [place] [address] Care Team Providers Care Internet Media Planner Name Role Phone oJse Rodriguez MD Primary Care Provider + [phone] Encounter Details Date Type Department Care Team (Latest Contact Info) Description 07/12/2025 Travel Social History Tobacco Use Types Packs/Day [...] difficult at all 07/12/2025 8:05 AM EDT Bernadette Grimes documented as of this encounter Plan of Treatment Upcoming Encounters Date Type Department Care Team (Late st Contact Info) Description 06/15/2026 8:00 AM EDT Office Visit Obstetrics & Gynecology [address] [place] [address] Anna Elkins, PAPER BAG MACHINE OPERATOR, CNM [address] [place] [address] documented as of this encounter Visit Diagnoses Not on filedocumented in this encounter Additional Health Concerns Assessment Noted Time A fall risk assessment has been complete d for the patient 07/12/2025 8:05 AM EDT A Body Mass Index follow-up plan has been documented for the patient 07/12/2025 8:29 AM EDT documented as of this encounter Care Teams Internet Media Planner Relationship Specialty Start Date End Date Jose Rodriguez MD [address] [facility] [address] [place], [place] [id number] PCP - General 05/14/23 documented as of this encounter
[2025-08-20] MEDS: ACETAMINOPHEN 500MG TAB 500 MG PO (18:12)
[2025-08-20] MEDS: IBUPROFEN 400 MG TABLET PO (18:12)
[2025-08-20] MEDS: ONDANSETRON 4MG ODT 4 MG SL (18:12)
[2025-08-20 18:18] LABS: Hematocrit 43.0 % (37.0-47.0); Hemoglobin 13.8 g/dL (12.2-16.2); Immature Granulocytes % 0.3 %; Mean Corpuscular HGB Conc 32.1 g/dL (31.8-35.4); Mean Corpuscular Hemoglobin 27.6 pg (27.0-31.2); Mean Corpuscular Volume 86.0 fl (81-99); Nucleated Red Blood Cells % 0 %; Platelet Count 309 K/mm3 (142-424); Red Blood Count 5.00 M/mm3 (4.20-5.40); Red Cell Distribution Width-SD 40.6 fL; White Blood Count 8.9 K/mm3 (4.8-10.8)
[2025-08-20 18:25] LABS: Alanine Aminotransferase 25 U/L (12-78); Albumin Level 4.6 g/dl (3.5-5.0); Albumin/Globulin Ratio 1.5 (1.1-1.8); Alkaline Phosphatase 75 U/L (38-126); Anion Gap 10.7 mEq/L (5-15); Aspartate Amino Transferase 34 U/L (14-36); Bilirubin,Total 0.6 mg/dl (0.2-1.3); Blood Urea Nitrogen 14 mg/dl (7-17); Calcium 9.0 mg/dl (8.4-10.2); Carbon Dioxide 26 mmol/L (22.0-30.0); Chloride 101 mmol/L (98-107); Creatinine Clearance Estimated 110 mL/min (50-200); Creatinine,Serum 0.70 mg/dl (0.52-1.04); Estimated Glomerular Filt Rate 94 ml/min (>60); GFR (African American) 113 ML/MIN (>60); Globulin 3.0 g/dL (1.3-3.2); Glucose 92 mg/dl (74-100); Lipase 74 U/L (23-300); Potassium 3.7 mmoL/L (3.5-5.1); Sodium 134 mmol/L (136-145); Total Protein,Serum 7.6 g/dl (6.3-8.2)
--- NOTE | 2025-08-20 18:53 | ED_ITS ---
<Statement entered by Mio De La Cruz DO - 08/21/25 00:28> I was consulted by the KASHIF, and we discussed the complexity of problems being addressed. I approved the treatment and management plan for this patient's care in the emergency department, thus performing a substantive portion of the medical decision making. Mio De La Cruz DO Discharge Plan Disposition Patient Disposition: Home, Self-Care Condition: Good Prescriptions Prescriptions: New omeprazole 40 mg capsule,delayed release(DR/EC) 40 mg PO DAILY 28 Days Qty: 28 0RF ondansetron 4 mg tablet,disintegrating 4 mg PO Q6H PRN (Reason: nausea and vomiting) Qty: 10 0RF No Action irbesartan-hydrochlorothiazide 300-12.5 mg tablet 1 tab PO DAILY Patient Comments: TAKE 1 TABLET BY MOUTH EVERY DAY FOR 90 DAYS furosemide 20 mg tablet 20 mg PO DAILY Patient Comments: TAKE 1 TABLET BY MOUTH EVERY DAY methylprednisolone 4 mg Tablets,Dose Pack 4 mg PO DIRECTED 6 Days Qty: 21 0RF Rx Instructions: Take 1 pack as directed for 6 days Referrals Follow up/Referrals: Jose Rodriguez MD [Primary Care Provider, Medical] - See instructions Michael Arreguin II, MD [Staff Physician, Gastroenterology] - See instructions Activity Restrictions/Add. Instructions Additional Instructions/Restrictions: Please return to the emergency department with any worsening signs or symptoms. Please use your new acid reflux medication once daily for 4 weeks. Please follow-up with GI doctor in the upcoming days/weeks. Please utilize antinausea medicine as needed for symptomatic relief. Clinical Impressions Clinical Impression: Gastritis Instructions Patient Instructions: DI for Gastritis Print Language Print Language: Nigerian Discharge ED Provider: Mio De La Cruz General Adult HPI General Chief complaint: Abdominal Pain Stated complaint: abdominal pain Time Seen by Provider: 08/20/25 18:45 Mode of Arrival: Ambulatory Source of Information: Patient Description of Symptoms (Recalled from ER Triage Doc. by RN): patient presents to the ED for LUQ pain that started yesterday. patient states its constantly dull but intermittently stabbing/shooting. patient denies major gastric pmh. no issues with bowels or bladder. pain does wrap around to her back. History of Present Illness HPI narrative: 40-year-old female presents to the emergency department with upper quadrant abdominal pain that is worse with p.o. intake, since yesterday, she endorses episodes of nausea 1 episode of vomiting, the pain is in her upper quadrants of radiation to her back, she endorses reflux symptomatology with this, denies any overt chest pain or shortness of breath, denies fever or chills, denies any diarrhea constipation, hematuria melena hematochezia hematemesis, no urinary symptomatology, patient is a non-smoker denies any alcohol or drug use, other past medical history consistent with hypertension, pseudotumor cerebri, on GLP-1 agonist for weight loss, skip dose this week, has been on this for for the last 8 to 9 months via PCP, data deficient history of biliary sludge. Initial triage vitals unremarkable. Please note that above description of symptoms, in this electronic medical record under categorization of recalled from ER triage doctor by RN are reflective of an initial nursing assessment, however, is not reflective of my full history and physical exam that was personally taken and clarified. Consequentially, this preceding description of symptoms, which may include the patient's categorized chief complaint in the EMR, do not reflect my personal clinical impression, and the ultimate description of history of present illness and patient stated complaints should be deferred to this section of the note. Unless stated otherwise or congruent with this section of the note, additional signs, symptoms, or incongruence should be interpreted as inaccurate with my clinical impression. Onset (ago): day(s) Related Data Home Medications ?Medication ?Instructions ?Recorded ?Confirmed furosemide 20 mg tablet 20 mg PO DAILY Fluid 3 08/03/24 irbesartan 300 1 tab PO DAILY Hypertension 06/08/23 08/03/24 mg-hydrochlorothiazide 12.5 mg tablet Previous Rx's ?Medication ?Instructions ?Recorded methylprednisolone 4 mg tablets in 4 mg PO DIRECTED 6 days #21 tabs 08/03/24 a dose pack omeprazole 40 mg capsule,delayed 40 mg PO DAILY 4 week s #28 caps 08/20/25 release ondansetron 4 mg disintegrating 4 mg PO Q6H PRN nausea and 08/20/25 tablet vomiting #10 tabs Allergies Allergy/AdvReac Type Severity Reaction Status Date / Time No Known Allergies Allergy Verified 02/24/22 16:07 [facility] Disclaimer: The information contained in this section may have been updated after the patient was seen, as this information can be updated by other users. Medical History (Updated 08/20/25 @ 20:47 by CARLITOS Bruno) Intracranial hypertension Hypertension Social History (Updated 06/08/23 @ 08:24 by CARLITOS Victor) Smoking Status: Never smoker alcohol intake: never current occupational status: employed Travel in the last 8 weeks?: None Have you lived/traveled outside [place] in past 30 days?: No Contact w/someone who lives/traveled outside [place] past 30 days?: No Exposure to someone with infectious disease in past 14 days?: No Do you have a fever (greater than 100.4 F or 38 C)?: No Have you tested positive for COVID-19?: No Exposed to someone with COVID-19 in past 14 days?: No Do you have a sore throat?: No Do you have a cough?: No Do you have any weakness?: No Do you have any diarrhea?: No Are you experiencing any unusual bleeding?: No Do you have any muscle aches/pain?: No Do you have any abdominal pain?: No Are you experiencing loss of taste or smell?: No ROS Obtained: Yes All systems reviewed & no additional complaints except as documented Physical Exam General General appearance: alert and in no apparent distress Head Head exam: atraumatic and normocephalic Eye Eye exam: Present PERRL and EOMI ENT ENT exam: Present mucous membranes moist Neck Neck exam: Present normal inspection Chest Chest inspection: Present normal inspection and symmetric chest wall rise Respiratory Respiratory exam: Present normal lung sounds bilaterally; Absent respiratory distress Cardiovascular Cardiovascular exam: Present regular rate and normal rhythm Abdominal Exam Abdominal exam: Present soft and tenderness; Absent guarding, rebound, rigidity, Burkett's sign or tenderness at McBurney's Point Extremities Exam Extremities exam: Present normal inspection Neurological Exam Neurological exam: Present alert and oriented X3 Psychiatric Psychiatric exam: Present normal affect Skin Skin exam: Present warm and dry Medical Decision Making Medical Records Medical records reviewed: Yes I reviewed the patient's medical records. Screening: Per USPSTF and CDC recommendations, given the prevalence of disease in our region, it is our hospital?s policy to screen for HIV and viral Hepatitis for all patients aged 18 and over and those with ongoing risk factors. Sudhakar Inquiry Pt receiving controlled substance: Yes Sudhakar was queried for this patient: No Reason not queried -: Emergent pt cond-no time Risks and benefits of using a controlled substance: were discussed with pt by me Vital Signs: 08/20/25 17:22 08/20/25 19:01 08/20/25 19:31 Temperature 98.5 F Temperature Source Oral Pulse Rate 81 79 Pulse Rate [Right Radial] 88 Respiratory Rate 18 Blood Pressure 142/85 H 128/72 Blood Pressure Mean 108 93 Blood Pressure Source [Right Arm] Automatic Cuff Blood Pressure Position [Right Arm] Sitting 02 Sat by Pulse Oximetry 100 94 L 97 Oxygen Delivery Method Room Air Lab Data Lab results reviewed: Yes I reviewed the patient's lab results. Lab Results 08/20/25 18:00: WBC 8.9, RBC 5.00, Hgb 13.8, Hct 43.0, MCV 86.0, MCH 27.6, MCHC 32.1, RDW 13.0, Plt Count 309, MPV 9.4, Neut % (Auto) 66.5, Lymph % (Auto) 24.9, Porter % (Auto) 6.4, Eos % (Auto) 1.3, Baso % (Auto) 0.6, Neut # (Auto) 5.9, Lymph # (Auto) 2.2, Porter # (Auto) 0.6, Eos # (Auto) 0.1, Baso # (Auto) 0.1, Sodium 134 L, Potassium 3.7, Chloride 101, Carbon Dioxide 26, Anion Gap 10.7, BUN 14, Creatinine 0.70, Estimated Creat Clear 110, Estimated GFR 94, Est GFR ( Amer) 113, Glucose 92, Lactate 1.2, Calcium 9.0, Total Bilirubin 0.6, AST 34, ALT 25, Alkaline Phosphatase 75, Troponin I < 0.01, NT-Pro-B Natriuret Pep 38.6, Total Protein 7.6, Albumin 4.6, Globulin 3.0, Albumin/Globulin Ratio 1.5, Lipase 74 08/20/25 19:20: Urine Color Yellow, Urine Appearance Clear, Urine pH 6.0, Ur Specific [place] 1.020, Urine Protein Negative, Urine Glucose (UA) Negative, Urine Ketones Negative, Urine Blood Trace-i, Urine Nitrate Negative, Urine Bilirubin Negative, Urine Urobilinogen 0.2, Ur Leukocyte Esterase 1+ A, Urine RBC None, Urine WBC 5-10, Ur Squamous Epith Cells 5-10, Urine Bacteria 3+, Urine HCG, Qual Negative 08/20/25 18:00 08/20/25 18:00 Orders (Tests/Meds): ED MEDICATIONS Generic Name Dose Route Start Last Admin Trade Name Isreal PRN Reason Stop Dose Admin Sodium Chloride 10 ml 08/20/25 20:05 08/20/25 20:06 Sodium Chloride 0.9% 10ml Syr (Rad Only) IV 09/19/25 20:04 10 ml NEEDED PRN Administration Maintain IV Site Discontinued Medications Generic Name Dose Route Start Last Admin Trade Name Isreal PRN Reason Stop Dose Admin Acetaminophen 500 mg 08/20/25 18:07 08/20/25 18:12 Acetaminophen 500mg Tab PO 08/20/25 18:08 500 mg ONCE ONE Administration Belladonna Alkaloids 60 ml 08/20/25 19:02 08/20/25 19:14 Belladonna Alkaloids 60 Ml Ml PO 08/20/25 19:03 60 ml ONCE ONE Administration Ibuprofen 400 mg 08/20/25 18:07 08/20/25 18:12 Ibuprofen 400 Mg Tablet PO 08/20/25 18:08 400 mg ONCE ONE Administration Iopamidol 75 ml 08/20/25 20:05 08/20/25 20:06 Iopamidol-370 (76%);100ml Bottle IV 08/20/25 20:06 75 ml ONCE ONE Administration Morphine Sulfate 4 mg 08/20/25 19:01 08/20/25 19:27 Morphine 4mg/Ml Syringe IV 08/20/25 19:02 4 mg ONCE ONE Administration Ondansetron HCl 4 mg 08/20/25 18:07 08/20/25 18:12 Ondansetron 4mg Odt SL 08/20/25 18:08 4 mg ONCE ONE Administration ORDERS Category Date Time Status CT abdomen pelvis w con Stat Cat Scan 08/20/25 19:47 Completed Complete Blood Count Auto Diff Stat Lab 08/20/25 18:00 Completed Comprehensive Metabolic Panel Stat Lab 08/20/25 18:00 Completed Lactic Acid Stat Lab 08/20/25 18:00 Completed Lipase Stat Lab 08/20/25 18:00 Completed NT Pro Brain Natriuretic Pep. Stat Lab 08/20/25 18:00 Completed Troponin I Q3H Lab 08/20/25 22:15 Ordered Troponin I Q3H Lab 08/21/25 01:15 Ordered Troponin I Stat Lab 08/20/25 18:00 Completed Urinalysis and Microscopic Stat Lab 08/20/25 19:20 Completed Urine , HCG Qual. Stat Lab 08/20/25 19:20 Completed Urine Culture Stat Micro 08/20/25 19:20 Received Medical Decision Narrative: 40-year-old female presents emergency department with upper quadrant abdominal pain worse with p.o. intake, with associated nausea and vomiting, differential diagnose include but not limited to, colitis, ileitis, gastritis, PUD, GERD, electrolyte disturbance, pancreatitis, cholelithiasis, choledocholithiasis, cholecystitis among others I discussed this patient's case with the attending patient Will obtain CBC CMP, lipase level lactic acid level, EKG, troponin, proBNP, UA, urine hCG, obtain CT ab pelvis with contrast, will give 500 mg p.o. Tylenol, 400 mg ibuprofen, 4 mg p.o. sublingual Zofran for nausea, also give 4 mg morphine for nausea as well as GI cocktail. CBC is unremarkable. CMP is noted for mild hyponatremia 134, no lactic acidosis, normal lipase level no transaminitis, normal bilirubin. hCG urine qualitative negative Urinalysis is notable 1+ leukocyte esterase, trace hematuria otherwise unremarkable proBNP within normal limits Troponin within normal limits at less than 0.01 Microscopic analysis is notable for 5-10 WBCs, 5-10 squamous epithelial cells and 3+ bacteria. I reviewed the patient's CT abdomen pelvis with contrast along the corresponding radiologic report mild thickening edema of the gastric antrum compatible with gastritis. I discussed the results with the patient at bedside patient did have some resolution in her symptomatology with GI cocktail and pain medications here. Will send the patient home with sublingual Zofran 4 mg p.o. as needed for symptomatic relief as well as start the patient on a 40 mg p.o. omeprazole for her GERD symptomatology patient states she has had significant reflux symptomatology over the last several weeks. Will have patient follow-up with GI in the upcoming days/weeks. Patient was given strict ED return precautions. Hemodynamically stable throughout time in the emergency department, no decrease in patient's hemoglobin hematocrit to suggest perforated viscus/ongoing PUD at this time. Patient voiced understanding and agreement with the current treatment plan/discharge plan. Critical Care Critical Care Time Critical Care Time: No
[2025-08-20 19:01] VITALS: BP 142/85; PULSE 81; O2SAT 94
[2025-08-20] MEDS: BELLADONNA ALKALOIDS 60 ML ML PO (19:14)
[2025-08-20] MEDS: MORPHINE 4MG/ML SYRINGE 4 MG IV (19:27)
[2025-08-20 19:31] VITALS: BP 128/72; PULSE 79; O2SAT 97
[2025-08-20 19:33] LABS: Microscopic, Urine URINE MICROSCOPIC (MICROSCOPIC)
[2025-08-20 19:40] LABS: Urine Pregnancy, HCG Qual. Negative (Negative)
[2025-08-20 19:41] LABS: Bilirubin,Urine Negative (Negative); Color,Urine YELLOW (Yellow); Glucose,Urine (UA) Negative (Negative); Ketones,Urine Negative (Negative); Leukocyte Esterase,Urine 1+ (Negative); PH,Urine 6.0 (5.0-8.5); Protein,Urine Negative (Negative); Specific Gravity, Urine 1.020 (1.005-1.030); Urobilinogen,Urine 0.2 EU/dl (0.2)
--- NOTE | 2025-08-20 19:47 | CT_ITS ---
PROCEDURE INFORMATION: Exam: CT Abdomen And Pelvis With Contrast Exam date and time: 08/20/2025 8:04 PM Age: 40 years old Clinical indication: Abdominal pain; Additional info: Mid epigastric pain TECHNIQUE: Imaging protocol: Computed tomography of the abdomen and pelvis with contrast. Radiation optimization: All CT scans at this facility use at least one of these dose optimization techniques: automated exposure control; mA and/or kV adjustment per patient size (includes targeted exams where dose is matched to clinical indication); or iterative reconstruction. Contrast material: ISOVUE; Contrast volume: 75 ml; Contrast route: IV; COMPARISON: CT ABDOMEN PELVIS W CON 02/12/2024 9:54 AM FINDINGS: Liver: Diffuse hypoattenuation of the liver compatible with mild hepatic steatosis. Gallbladder and biliary ducts: Normal. No calcified stones. No ductal dilation. Pancreas: Normal. No ductal dilation. Spleen: Normal. No splenomegaly. Adrenal glands: Normal. No mass. Kidneys and ureters: Normal. No hydronephrosis. Stomach and bowel: Mild thickening and edema of the gastric antrum compatible with gastritis. Appendix: No evidence of appendicitis. Intraperitoneal space: Unremarkable. No free air. No significant fluid collection. Vasculature: Unremarkable. No abdominal aortic aneurysm. Lymph nodes: Unremarkable. No enlarged lymph nodes. Urinary bladder: Bladder is decompressed limiting its evaluation. Reproductive: An intrauterine device is present. Bones/joints: Moderate loss of intervertebral disc space with degenerative changes involving thoracolumbar junction. Soft tissues: Normal. IMPRESSION: Mild thickening and edema of the gastric antrum compatible with gastritis.
[2025-08-20 19:48] LABS: NT Pro Brain Natriuretic Pep. 38.6 pg/mL (0-125)
[2025-08-20 19:51] LABS: Troponin I < 0.01 ng/ml (0.00-0.034)
[2025-08-20 19:55] LABS: Bacteria,Urine 3+ /lpf
[2025-08-20] MEDS: SODIUM CHLORIDE 0.9% 10ML SYR (RAD ONLY) 10 ML IV (20:06)
[2025-08-20] MEDS: IOPAMIDOL-370 (76%);100ML BOTTLE 75 ML IV (20:06)
[2025-08-20 20:48] VITALS: BP 123/82; PULSE 72; RESP 20; TEMP 37; O2SAT 96
== END 2025-08-20 20:58 | disposition home or self-care (01) ==
PROVIDERS: Physician Assistant; Emergency Provider Student in an Organized Health Care Education/Training Program; PCP Family Medicine
DX: K29.70 Gastritis, unspecified, without bleeding (principal)
CPT/HCPCS: 74177; 80053; 81001; 81025; 83605; 83690; 83880; 84484; 85025; 87086; 96374; 99285; J2270; Q0162; Q9967

== ENCOUNTER 2025-09-19 14:49 | Outpatient (CLI) | payer BC, SELFPAY ==
--- NOTE | 2025-09-19 14:53 | XR_ITS ---
FINAL REPORT CLINICAL HISTORY: PAIN FINDINGS: LEFT HAND Three views demonstrate no acute fracture or dislocation. The visualized joint spaces are normally aligned. The soft tissues are unremarkable. IMPRESSION: No acute process. Reviewed, Interpreted and Dictated by Darien Christopher MD Transcribed by Carey Jain Authenticated and [facility]
--- NOTE | 2025-09-19 14:53 | XR_ITS ---
FINAL REPORT CLINICAL HISTORY: PAIN FINDINGS: RIGHT HAND Three views demonstrate no acute fracture or dislocation. The visualized joint spaces are normally aligned. The soft tissues are unremarkable. IMPRESSION: No acute bony abnormality. Reviewed, Interpreted and Dictated by Darien Christopher MD Transcribed by Carey Jain Authenticated and [facility]
== END 2025-09-19 23:59 | disposition home or self-care (01) ==
LOC: RAD 14:50
PROVIDERS: PCP Family Medicine; Visit Provider Nurse Practitioner Family
DX: M25.541 Pain in joints of right hand (principal); M25.542 Pain in joints of left hand; M77.8 Other enthesopathies, not elsewhere classified
CPT/HCPCS: 73120